=== PATIENT | female | born 1975 | race Caucasian/White ===

== ENCOUNTER → 2018-04-06 | Outpatient (CLI) | payer BC | LOC: CARD 14:17 | PROVIDERS: ATTEND Internal Medicine Interventional Cardiology | DX: R00.2 Palpitations (principal); R55 Syncope and collapse | CPT/HCPCS: 93225; 93226 ==

== ENCOUNTER → 2018-04-22 | Outpatient (CLI) | payer BC ==
[~2018-04-22] VITALS: Ht 172.7 cm; Wt 131.5 kg
[~2018-04-22] MED LIST: CATHETER FLUSH 10 ML SYR IV PRN; REGADENOSON 0.4 MG/5 ML SYR (LEXISCAN) IV ONE
[2018-04-22 10:03] VITALS: BP 119/71
[2018-04-22 10:06] VITALS: BP 157/86
[2018-04-22 18:20] VITALS: BP 119/71
--- NOTE | 2018-04-22 18:20 | Cardiology Stress Test Report ---
Stress Test Report Type of NM Stress Test: Test Type: LEXISCAN 0.4MG/5ML Date of Procedure/Referring: Date of Procedure: Apr 22, 2018 PCP Juan Manuel Xiong MD Admitting Physician No,Local Physician Indications: near syncope Baseline Heart Rate: 55 Baseline Blood Pressure: Blood Pressure Systolic: 119 Blood Pressure Diastolic: 71 Baseline EKG: Baseline EKG: sinus rhythm Summary & Conclusion: Summary: The patient was brought to the stress lab after informed consent was taken. Stress test was performed according to the Lexiscan protocol. 0.4 mg of IV Lexiscan was given. Low-grade exercise was performed. Baseline EKG showed sinus rhythm at 55 BPM. Initial blood pressure was 119/71 mmHg. Maximum heart rate was 126 bpm and blood pressure 157/86 mmHg. Patient did not have any chest pain, arrhythmias or ST segment changes during the stress test. 10.91 mCi of Myoview were given for rest imaging and 29.5 mCi of Myoview given for stress imaging. Transient ischemic dilatation score 1.05, EF normal. Normal wall motion. Normal myocardial perfusion imaging during rest and stress. Conclusion: Pharmacological stress test was negative for ischemia. Normal LV function with no wall motion abnormalities. Normal myocardial perfusion imaging during rest and stress. Juan Manuel XIONG MD Apr 22, 2018 6:20 pm
== END ==
LOC: CARD 08:12 → EDUNIT# 08:30
PROVIDERS: ATTEND Internal Medicine Interventional Cardiology
DX: Z01.810 Encounter for preprocedural cardiovascular examination (principal); E66.01 Morbid (severe) obesity due to excess calories; R55 Syncope and collapse; R00.2 Palpitations; I45.10 Unspecified right bundle-branch block; G47.30 Sleep apnea, unspecified; Q21.1 Atrial septal defect
CPT/HCPCS: 78452; 93017

== ENCOUNTER 2018-05-20 11:56 | Day surgery (SDC) | payer BC ==
[~2018-05-20] VITALS: Ht 172.7 cm; Wt 118.8 kg
[2018-05-20] MEDS ORDERED: LIDOCAINE 1% INJ 20 ML 20 ML VIAL ONE ×2 (12:25→13:16)
[2018-05-20 12:37] VITALS: BP 124/61
--- OUTSIDE RECORDS SUMMARY | 2018-05-20 13:02 | XMS REPORT ---
Author Author Yazmin Wallis [facility] Address [address] [place], [place] [id number] Care Team Providers Care Contour Sander Name Role Phone Yazmin Wallis PCP Yazmin Wallis PreferredProvider Allergies and Adverse Reactions Name Reaction Notes Augmentin diarrhea, stomach cramping Levaquin woke up and could not use hands Plan of Treatment Planned Activity Comments Planned Date Planned Time Plan/Goal Breathing Treatment 06/23/2015 12:00 AM Diagnostic Mammogram 01/04/2013 12:00 AM Breast Ultrasound 01/04/2013 12:00 AM Mammogram, screening, bilateral 05/07/2018 12:00 AM Medications Active Name Start Date Estimated Completion Date SIG Comments Adult Probiotic 3 billion cell oral capsule take 1 capsule by oral route daily Calcium 600 600 mg calcium (1,500 mg) oral tablet take 1 tablet by oral route 2 times a day cyanocobalamin (vitamin B-12) 1,000 mcg oral capsule take 1 capsule by oral route weekly metoprolol tartrate 25 mg oral tablet take 1 tablet (25 mg) by oral route once daily extended release multivitamin oral capsule take 2 capsules by oral route daily Name Start Date Expiration Date SIG Comments ondansetron 8 mg oral tablet,disintegrating 02/11/2011 02/18/2011 take 1 tablet (8 mg) and place on top of the tongue where it will dissolve, then swallow by oral route every 8 hours for 7 days Levaquin 750 mg oral tablet 03/03/2011 03/17/2011 take 1 tablet (750 mg) by oral route once daily for 14 days Bactrim DS 800-160 mg oral tablet 03/21/2011 03/28/2011 take 1 tablet by oral route every 12 hours for 7 days Zithromax Z-Adan 250 mg oral tablet 05/07/2012 05/12/2012 take 2 tablets (500 mg) by oral route once daily for 1 day then 1 tablet (250 mg) by oral route once daily for 4 days Vibramycin 100 mg oral capsule 06/11/2012 06/21/2012 take 1 capsule (100 mg) by oral route every 12 hours for 10 days amoxicillin 500 mg oral capsule 03/21/2013 03/28/2013 take 1 capsule (500 mg ) by oral route every 8 hours for 7 days omeprazole 20 mg oral capsule,delayed release(DR/EC) 06/03/2013 07/03/2013 take 1 capsule (20 mg) by oral route once daily before a meal for 30 days Zyrtec 10 mg oral tablet 06/03/2013 10/01/2013 take 1 tablet by oral route daily for 30 days Tamiflu 75 mg oral capsule 05/30/2014 06/04/2014 take 1 capsule (75 mg) by oral route 2 times per day for 5 days azithromycin 500 mg oral tablet 05/10/2015 05/15/2015 take 1 tablet (500 mg) by oral route once daily x 5 days promethazine-codeine 6.25-10 mg/5 mL oral syrup 05/10/2015 05/17/2015 take 5 milliliters by oral route every 4 hours as needed, not to exceed 30 mL in 24 hours for 7 days valacyclovir 1 gram oral tablet 07/06/2015 07/09/2015 take 2 tablets by oral route 2 times a day for 1 day nystatin 100,000 unit/gram topical powder 10/14/2016 11/13/2016 apply to the affected area(s) by topical route 2 times per day for 30 days doxycycline hyclate 100 mg oral capsule 10/16/2016 10/23/2016 take 1 capsule ( 100 mg) by oral route every 12 hours for 7 days Discontinued Name Start Date Discontinued Date SIG Comments Lasix 40 mg oral tablet 09/23/2011 take 1 tablet (40 mg) by oral route once daily Motrin 800 mg oral tablet 02/11/2011 03/21/2011 take 1 tablet by oral route every 8 hours as needed Percocet 5-325 mg oral tablet 02/11/2011 03/07/2011 take 1 tablet by oral route every 4-6 hours as needed Klor-Con M20 20 mEq oral tablet,ER particles/crystals 10/23/2011 08/10/2014 take 1 tablet (20 meq) by oral route once daily with food phentermine 37.5 mg oral capsule 10/23/2011 11/24/2012 take 1 capsule (37.5 mg ) by oral route once daily before breakfast for 30 days furosemide 20 mg oral tablet 12/09/2011 08/10/2014 take 1 tablet by oral route 2 times a day albuterol sulfate 90 mcg/actuation inhalation HFA aerosol inhaler 06/11/2012 inhale 1 - 2 puffs by inhalation route every 6 hours as needed Tessalon Perles 100 mg oral capsule 06/11/2012 08/10/2014 take 1 capsule by oral route 3 times a day as needed levothyroxine 50 mcg oral tablet 11/29/2012 05/02/2013 take 1 tablet (50 mcg ) by oral route once daily promethazine-codeine 6.25-10 mg/5 mL oral syrup 03/21/2013 08/10/2014 take 5 milliliters by oral route every 4-6 hours as needed, not to exceed 30 mL in 24 hours phentermine 37.5 mg oral tablet 05/02/2013 08/10/2014 take 1 tablet (37.5 mg) by oral route once daily before breakfast Zithromax Z-Adan 250 mg oral tablet 08/10/2014 take 2 tablets (500 mg) by oral route once daily for 1 day then 1 tablet (250 mg) by oral route once daily for 4 days Famvir 500 mg oral tablet 08/10/2014 05/10/2015 take 3 tablets (1500 mg) by oral route once within first hour of symptoms phentermine 37.5 mg oral tablet 11/06/2014 05/10/2015 take 1 tablet (37.5 mg) by oral route once daily before breakfast furosemide 20 mg oral tablet 02/16/2015 05/10/2015 take 1 tablet (20 mg) by oral route once daily for 90 days Symbicort 160-4.5 mcg/actuation inhalation HFA aerosol inhaler 06/23/2015 inhale 2 puffs by inhalation route 2 times per day in the morning and evening Medrol (Adan) 4 mg oral tablets,dose pack 06/25/2015 05/06/2016 take as directed promethazine-codeine 6.25-10 mg/5 mL oral syrup 06/25/2015 05/06/2016 take 5 milliliters by oral route every 4-6 hours as needed, not to exceed 30 mL in 24 hours Augmentin 875-125 mg oral tablet 04/07/2017 05/07/2018 take 1 tablet by oral route every 12 hours for 7 days promethazine-codeine 6.25-10 mg/5 mL oral syrup 04/07/2017 05/07/2018 take 5 milliliters by oral route every 6 hours as needed, not to exceed 30 mL in 24 hours Problem List Description Status Onset Edema Active 10/23/2011 Hypothyroidism Active 03/21/2013 GE (obstructive sleep apnea) Active 05/07/2018 ASD (atrial septal defect) Active 05/07/2018 Tachycardia Active 05/07/2018 Constipation Active 05/07/2018 Vital Signs Date Time BP-Sys(mm[Hg] BP-Jessi(mm[Hg]) HR(bpm) RR(rpm) Temp WT HT HC BMI BSA BMI Percentile O2 Sat(%) 05/07/2018 3:35:00 PM 108 mmHg 80 mmHg 74 bpm 16 rpm 98.1 F 273.25 lbs 66 in 44.1033 kg/m 2.4024 m 97 % 04/07/2017 3:47:00 PM 130 mmHg 80 mmHg 67 bpm 18 rpm 96.9 F 298 lbs 99 % 10/16/2016 4:22:00 PM 122 mmHg 80 mmHg 78 bpm 16 rpm 97.9 F 296 lbs 97 % 05/06/2016 4:20:00 PM 140 mmHg 94 mmHg 62 bpm 16 rpm 98 F 289 lbs 67 in 45.2633 kg/m 2.4893 m 97 % 06/25/2015 3:38:00 PM 89 bpm 20 rpm 99.5 F 262 lbs 98 % 06/23/2015 9:11:00 AM 126 mmHg 74 mmHg 97 bpm 18 rpm 98.3 F 262.187 lbs 67 in 41.0639 kg/m 2.3711 m 95 % 05/10/2015 5:07:00 PM 124 mmHg 66 mmHg 82 bpm 18 rpm 96.6 F 265.125 lbs 67 in 41.52 kg/m2 2.38 m2 98 % 11/06/2014 4:14:00 PM 114 mmHg 78 mmHg 88 bpm 20 rpm 97.7 F 269.6 lbs 67 in 42.2249 kg/m 2.4043 m 97 % 09/21/2014 3:20:00 PM 118 mmHg 80 mmHg 62 bpm 18 rpm 97.2 F 277.25 lbs 67 in 43.42 kg/m2 2.44 m2 97 % 08/10/2014 4:06:00 PM 122 mmHg 80 mmHg 76 bpm 20 rpm 97.3 F 292.6 lbs 67 in 45.8272 kg/m 2.5048 m 95 % 05/02/2013 3:20:00 PM 122 mmHg 84 mmHg 77 bpm 18 rpm 97.9 F 286.125 lbs 98 % 03/21/2013 3:25:00 PM 118 mmHg 72 mmHg 71 bpm 20 rpm 97.9 F 282 lbs 66 in 45.52 kg/m2 2.44 m2 96 % 11/24/2012 3:31:00 PM 128 mmHg 84 mmHg 80 bpm 18 rpm 97.9 F 278 lbs 67 in 43.5405 kg/m 2.4415 m 95 % 07/06/2012 3:39:00 PM 135 mmHg 82 mmHg 92 bpm 20 rpm 98.7 F 289.4 lbs 67 in 45.33 kg/m2 2.49 m2 96 % 06/11/2012 3:28:00 PM 134 mmHg 92 mmHg 65 bpm 20 rpm 97 F 292 lbs 67 in 45.7332 kg/m 2.5022 m 96 % 05/07/2012 3:18:00 PM 112 mmHg 82 mmHg 72 bpm 18 rpm 97.4 F 284 lbs 67 in 44.48 kg/m2 2.47 m2 10/23/2011 4:27:00 PM 110 mmHg 70 mmHg 61 bpm 16 rpm 98.1 F 276 lbs 97 % 09/23/2011 3:39:00 PM 130 mmHg 80 mmHg 82 bpm 16 rpm 97.6 F 285.125 lbs 67 in 44.6564 kg/m 2.4726 m 94 % 03/27/2011 10:38:00 AM 107 mmHg 72 mmHg 65 bpm 97.2 F 03/21/2011 1:34:00 PM 126 mmHg 62 mmHg 78 bpm 98 F 279 lbs 67 in 43.6971 kg/m 2.4459 m 03/17/2011 10:11:00 AM 126 mmHg 74 mmHg 62 bpm 97.4 F 280 lbs 03/07/2011 3:53:00 PM 124 mmHg 82 mmHg 86 bpm 96.4 F 03/05/2011 9:23:00 AM 138 mmHg 82 mmHg 98 F 278 lbs 03/03/2011 10:54:00 AM 131 mmHg 85 mmHg 75 bpm 97.1 F 02/11/2011 4:37:00 PM 126 mmHg 74 mmHg 69 bpm 98.8 F 288 lbs 66 in 46.4839 kg/m 2.4664 m 12/24/2010 3:31:00 PM 112 mmHg 71 mmHg 76 bpm 97.6 F 286 lbs 66 in 46.16 kg/m2 2.46 m2 Social History Name Description Comments Tobacco Never smoker Alcohol Never History of Procedures Date Ordered Description Order Status 02/11/2011 12:00 AM COMPLETE CBC W/AUTO DIFF WBC Reviewed 02/11/2011 12:00 AM COMPREHEN METABOLIC PANEL Reviewed 02/11/2011 12:00 AM Type and screen Reviewed 05/10/2015 12:00 AM THER/PROPH/DIAG INJ SC/IM Reviewed 05/10/2015 12:00 AM Decadron, Per 1 Mg [facility]# [address]-28 Reviewed 05/10/2015 12:00 AM Rocephin 1 gram [facility]#0755-1120-59 Reviewed 05/10/2015 12:00 AM Depo-Medrol 40mg Reviewed 06/25/2015 12:00 AM THER/PROPH/DIAG INJ SC/IM Reviewed 06/25/2015 12:00 AM Decadron, Per 1 Mg [facility]# [address]-71 Reviewed 09/23/2011 12:00 AM COMPREHEN METABOLIC PANEL Reviewed 09/23/2011 12:00 AM LIPID PANEL Reviewed 09/23/2011 12:00 AM GLYCOSYLATED HEMOGLOBIN TEST Reviewed 09/23/2011 12:00 AM ASSAY THYROID STIM HORMONE Reviewed 09/23/2011 12:00 AM COMPLETE CBC W/AUTO DIFF WBC Reviewed 09/23/2011 12:00 AM VITAMIN B-12 Reviewed 09/23/2011 12:00 AM ASSAY OF FREE TESTOSTERONE Reviewed 05/13/2016 12:00 AM METABOLIC PANEL TOTAL CA Returned 05/13/2016 12:00 AM COMPLETE CBC W/AUTO DIFF WBC Returned 05/13/2016 12:00 AM ASSAY THYROID STIM HORMONE Returned 05/06/2016 12:00 AM SPECIMEN HANDLING OFFICE-LAB Reviewed 05/13/2016 12:00 AM LIPID PANEL Returned 10/16/2016 12:00 AM Decadron 4mg Injection Reviewed 10/16/2016 12:00 AM Depo-Medrol 40mg Injection Reviewed 04/07/2017 12:00 AM Depo-Medrol 40mg Injection Reviewed 04/07/2017 12:00 AM Decadron 4mg Injection Reviewed 04/07/2017 12:00 AM THER/PROPH/DIAG INJ SC/IM Reviewed 06/11/2012 12:00 AM THER/PROPH/DIAG INJ SC/IM Reviewed 06/11/2012 12:00 AM Decadron, Per 1 Mg [facility]# [address]-96 Reviewed 06/11/2012 12:00 AM Depo-Medrol, Per 80 Mg [facility]#5824-6496-26 Reviewed 07/06/2012 12:00 AM CHEST X-RAY 2VW FRONTAL&LATL Reviewed 07/06/2012 12:00 AM COMPLETE CBC W/AUTO DIFF WBC Reviewed 07/06/2012 12:00 AM COMPREHEN METABOLIC PANEL Reviewed 07/06/2012 12:00 AM MYCOPLASMA ANTIBODY Reviewed 11/24/2012 12:00 AM COMPREHEN METABOLIC PANEL Reviewed 11/24/2012 12:00 AM LIPID PANEL Reviewed 11/24/2012 12:00 AM COMPLETE CBC W/AUTO DIFF WBC Reviewed 11/24/2012 12:00 AM ASSAY THYROID STIM HORMONE Reviewed 11/24/2012 12:00 AM MAMMOGRAM SCREENING Reviewed 11/24/2012 12:00 AM POLYSOM 6/> YRS 4/> LATRELL Reviewed 12/08/2012 12:00 AM COMPUTER DX MAMMOGRAM ADD-ON Reviewed 03/21/2013 12:00 AM FREE ASSAY (FT-3) Reviewed 03/21/2013 12:00 AM ASSAY THYROID STIM HORMONE Reviewed 05/02/2013 12:00 AM CHEST X-RAY 2VW FRONTAL&LATL Reviewed 05/02/2013 12:00 AM X-RAY EXAM OF TOE(S) Reviewed 05/02/2013 12:00 AM THER/PROPH/DIAG INJ SC/IM Reviewed 05/02/2013 12:00 AM Depo-Medrol, Per 120 Mg [facility]#9580-3086-67 Reviewed 05/02/2013 12:00 AM Decadron, Per 1 Mg [facility]# [address]-49 Reviewed 09/21/2014 12:00 AM COMPLETE CBC W/AUTO DIFF WBC Reviewed 09/21/2014 12:00 AM COMPREHEN METABOLIC PANEL Reviewed 09/21/2014 12:00 AM LIPID PANEL Reviewed 10/09/2014 12:00 AM COMPREHEN METABOLIC PANEL Reviewed 02/13/2015 12:00 AM METABOLIC PANEL TOTAL CA Reviewed Results Summary Date and Description Results 02/11/2011 5:45 PM GLUCOSE 89.0 mg/dLSODIUM 141.0 mmol/LPOTASSIUM 4.30 mmol/ LCHLORIDE 108.0 mmol/LCO2 24.0 mmol/LBUN 11.0 mg/dLCREATININE 0.90 mg/dLSGOT/ AST 15.0 IU/LSGPT/ALT 19.0 IU/LALK PHOS 99.0 IU/LTOTAL PROTEIN 6.90 g/dLALBUMIN 3.90 g/dLTOTAL BILI 0.20 mg/dLCALCIUM 9.30 mg/dLAGE 35 GFR NonAA 70 GFR AA 85 eGFR >60 mL/min/1.73 m2eGFR AA* >60 WBC 8.1 RBC 5.05 HGB 14.50 g/dLHCT 43.40 % MCV 86.0 fLMCH 28.70 pgMCHC 33.40 g/dLRDW SD 42 RDW CV 13.40 %MPV 11.90 fLPLT 201 NRBC# 0.00 NRBC% 0.0 %NEUT 58.70 %%LYMP 33.40 %%MONO 6.80 %%EOS 0.70 %%BASO 0.40 %#NEUT 4.73 #LYMP 2.69 #MONO 0.55 #EOS 0.06 #BASO 0.03 MANUAL DIFF NOT IND 09/27/2011 9:55 AM WBC 6.4 RBC 5.23 HGB 14.90 g/dLHCT 44.80 %MCV 86.0 fLMCH 28.50 pgMCHC 33.30 g/dLRDW SD 42 RDW CV 13.40 %MPV 11.80 fLPLT 193 NRBC# 0.00 NRBC% 0.0 %NEUT 61.0 %%LYMP 28.80 %%MONO 8.30 %%EOS 1.40 %%BASO 0.50 %#NEUT 3.89 #LYMP 1.84 #MONO 0.53 #EOS 0.09 #BASO 0.03 MANUAL DIFF NOT IND GLUCOSE 92.0 mg/dLSODIUM 143.0 mmol/LPOTASSIUM 4.30 mmol/LCHLORIDE 111.0 mmol/LCO2 24.0 mmol/LBUN 14.0 mg/dLCREATININE 0.80 mg/dLSGOT/AST 13.0 IU/LSGPT/ALT 14.0 IU/ LALK PHOS 86.0 IU/LTOTAL PROTEIN 6.20 g/dLALBUMIN 4.10 g/dLTOTAL BILI 0.40 mg/ dLCALCIUM 9.30 mg/dLAGE 36 GFR NonAA 80 GFR AA 97 eGFR 60 eGFR AA* 60 TSH 1.590 uIU/mLVITAMIN B12 229.0 pg/mLTRIGLYCERIDES 100.0 mg/dLCHOLESTEROL 161.0 mg/ dLHDL 43.0 mg/dLTOT CHOL/HDL 3.7 LDL (CALC) 98.0 mg/dLGLYCOHEMOGLOBIN A1C 5.30 % 07/06/2012 4:20 PM WBC 7.4 RBC 5.10 HGB 14.30 g/dLHCT 43.30 %MCV 85.0 fLMCH 28.0 pgMCHC 33.0 g/dLRDW SD 41 RDW CV 13.30 %MPV 11.50 fLPLT 212 NRBC# 0.00 NRBC % 0.0 %NEUT 59.10 %%LYMP 30.90 %%MONO 8.0 %%EOS 1.60 %%BASO 0.40 %#NEUT 4.36 # LYMP 2.28 #MONO 0.59 #EOS 0.12 #BASO 0.03 MANUAL DIFF NOT IND GLUCOSE 86.0 mg/ dLSODIUM 140.0 mmol/LPOTASSIUM 4.40 mmol/LCHLORIDE 109.0 mmol/LCO2 24.0 mmol/ LBUN 15.0 mg/dLCREATININE 0.90 mg/dLSGOT/AST 13.0 IU/LSGPT/ALT 15.0 IU/LALK PHOS 85.0 IU/LTOTAL PROTEIN 6.90 g/dLALBUMIN 3.90 g/dLTOTAL BILI 0.20 mg/ dLCALCIUM 9.10 mg/dLAGE 37 GFR NonAA 70 GFR AA 85 eGFR 60 eGFR AA* 60 11/27/2012 4:47 AM GLUCOSE 100.0 mg/dLSODIUM 142.0 mmol/LPOTASSIUM 4.10 mmol/ LCHLORIDE 109.0 mmol/LCO2 22.0 mmol/LBUN 18.0 mg/dLCREATININE 0.80 mg/dLSGOT/ AST 13.0 IU/LSGPT/ALT 16.0 IU/LALK PHOS 87.0 IU/LTOTAL PROTEIN 6.50 g/dLALBUMIN 3.70 g/dLTOTAL BILI 0.30 mg/dLCALCIUM 9.50 mg/dLAGE 37 GFR NonAA 80 GFR AA 97 eGFR 60 eGFR AA* 60 TSH 3.850 uIU/mLWBC 7.9 RBC 5.11 HGB 14.60 g/dLHCT 43.90 % MCV 86.0 fLMCH 28.60 pgMCHC 33.30 g/dLRDW SD 41 RDW CV 13.0 %MPV 11.80 fLPLT 203 NRBC# 0.00 NRBC% 0.0 %NEUT 57.0 %%LYMP 34.80 %%MONO 7.0 %%EOS 0.90 %%BASO 0.30 %#NEUT 4.49 #LYMP 2.74 #MONO 0.55 #EOS 0.07 #BASO 0.02 MANUAL DIFF NOT IND TRIGLYCERIDES 117.0 mg/dLCHOLESTEROL 182.0 mg/dLHDL 44.0 mg/dLTOT CHOL/HDL 4.1 LDL (CALC) 115.0 mg/dL 03/29/2013 3:42 PM TSH 1.950 uIU/mL 09/23/2014 10:35 AM TRIGLYCERIDES 61.0 mg/dLCHOLESTEROL 157.0 mg/dLHDL 47.0 mg/ dLTOT CHOL/HDL 3.3 LDL (CALC) 98.0 mg/dLGLUCOSE 105.0 mg/dLSODIUM 144.0 mmol/ LPOTASSIUM 4.50 mmol/LCHLORIDE 111.0 mmol/LCO2 24.0 mmol/LBUN 11.0 mg/ dLCREATININE 1.0 mg/dLSGOT/AST 13.0 IU/LSGPT/ALT 16.0 IU/LALK PHOS 78.0 IU/ LTOTAL PROTEIN 6.90 g/dLALBUMIN 4.30 g/dLTOTAL BILI 0.60 mg/dLCALCIUM 9.70 mg/ dLAGE 39 GFR NonAA 61 GFR AA 74 eGFR >60 mL/min/1.73 m2eGFR AA* >60 WBC 7.2 RBC 5.28 HGB 15.30 g/dLHCT 46.0 %MCV 87.0 fLMCH 29.0 pgMCHC 33.30 g/dLRDW SD 42 RDW CV 13.20 %MPV 12.30 fLPLT 190 NRBC# 0.00 NRBC% 0.0 %NEUT 62.10 %%LYMP 29.50 %% MONO 7.40 %%EOS 0.70 %%BASO 0.30 %#NEUT 4.47 #LYMP 2.12 #MONO 0.53 #EOS 0.05 # BASO 0.02 MANUAL DIFF NOT IND 11/06/2014 5:10 PM GLUCOSE 79.0 mg/dLSODIUM 144.0 mmol/LPOTASSIUM 3.90 mmol/ LCHLORIDE 106.0 mmol/LCO2 26.0 mmol/LBUN 12.0 mg/dLCREATININE 1.0 mg/dLSGOT/AST 15.0 IU/LSGPT/ALT 16.0 IU/LALK PHOS 85.0 IU/LTOTAL PROTEIN 6.50 g/dLALBUMIN 4.20 g/dLTOTAL BILI 0.40 mg/dLCALCIUM 9.0 mg/dLAGE 39 GFR NonAA 61 GFR AA 74 eGFR >60 mL/min/1.73 m2eGFR AA* >60 02/14/2015 5:01 PM GLUCOSE 85.0 mg/dLSODIUM 143.0 mmol/LPOTASSIUM 4.20 mmol/ LCHLORIDE 109.0 mmol/LCO2 27.0 mmol/LBUN 13.0 mg/dLCREATININE 0.90 mg/dLCALCIUM 9.20 mg/dLAGE 39 GFR NonAA 69 GFR AA 84 eGFR >60 mL/min/1.73meGFR AA* >60 History Of Immunizations Name Date Admin Mfg Name Mfg Code Trade Name Lot# Route Inj Vis Given Vis Pub CVX Influenza 02/28/2017 sanofi pasteur PMC Fluzone Quadrivalent Not Entered Not Entered 02/28/2017 06/08/2017 150 History of Past Illness Name Date of Onset Comments Edema 10/23/2011 Hypothyroidism 03/21/2013 Dysmenorrhea Dec 24 2010 3:30PM Pelvic Pain Feb 11 2011 4:36PM Dysmenorrhea Feb 11 2011 4:36PM Postoperative Examination Following Surgery Mar 03 2011 10:52AM Cellulitis/Abscess Mar 03 2011 10:52AM Postoperative Examination Following Surgery Mar 05 2011 9:23AM Cellulitis/Abscess Mar 05 2011 9:23AM Postoperative Examination Following Surgery Mar 07 2011 4:14PM Postoperative Examination Following Surgery Mar 17 2011 10:10AM Postoperative Examination Following Surgery Mar 21 2011 1:32PM Postoperative Examination Following Surgery Mar 27 2011 10:33AM GE (obstructive sleep apnea) 05/07/2018 ASD (atrial septal defect) 05/07/2018 Tachycardia 05/07/2018 Constipation 05/07/2018 Fatigue Sep 23 2011 3:44PM Glucose Intolerance Sep 23 2011 3:44PM Screening for Ischemic Heart Disease Sep 23 2011 3:44PM Restless Legs Sep 23 2011 3:44PM Restless Legs Oct 23 2011 4:29PM Edema Oct 23 2011 4:29PM Dietary Counseling Oct 23 2011 4:29PM Vitamin B12 deficiency Oct 23 2011 4:29PM Frontal Sinusitis, Acute May 07 2012 3:21PM Cough May 07 2012 3:21PM Weight Loss May 07 2012 3:21PM Obesity May 07 2012 3:21PM Cough Jun 11 2012 3:32PM Wheezing Jun 11 2012 3:32PM Bronchitis Jun 11 2012 3:32PM Cough Jul 06 2012 3:42PM Dyspnea Jul 06 2012 3:42PM Routine gynecological examination Nov 24 2012 3:39PM Screening Examination for Breast Cancer Nov 24 2012 3:39PM Vaginal Dryness Nov 24 2012 3:39PM Apnea Nov 24 2012 3:39PM Fatigue Nov 24 2012 3:39PM Screening for Ischemic Heart Disease Nov 24 2012 3:39PM Breast Mass, right Dec 08 2012 8:22AM Breast Mass, right Jan 04 2013 1:06PM Hypothyroidism Mar 21 2013 3:29PM Cough May 02 2013 3:23PM Edema May 02 2013 3:23PM Restless Legs May 02 2013 3:23PM Dietary Counseling May 02 2013 3:23PM Vitamin B12 deficiency May 02 2013 3:23PM Pain in foot, left 2nd toe May 02 2013 3:23PM Rhinitis, Allergic May 02 2013 3:23PM Dietary Counseling Aug 10 2014 4:07PM Exercise Counseling Aug 10 2014 4:07PM Body Mass Index 45.0-49.9, adult Aug 10 2014 4:07PM Dietary Counseling Sep 21 2014 3:22PM Exercise Counseling Sep 21 2014 3:22PM Body Mass Index 40.0-44.9, adult Sep 21 2014 3:22PM Pedal edema Sep 21 2014 3:22PM Ischemic heart disease screen Sep 21 2014 3:22PM 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 Hypokalemia Sep 25 2014 4:04PM Dietary Counseling Nov 06 2014 4:17PM Exercise Counseling Nov 06 2014 4:17PM Body Mass Index 40.0-44.9, adult Nov 06 2014 4:17PM Hypokalemia Feb 13 2015 3:22PM Bronchitis, Acute May 10 2015 5:09PM Cough May 10 2015 5:09PM Sinusitis, Acute May 10 2015 5:09PM Wheezing May 10 2015 5:09PM Cough Jun 23 2015 9:13AM Wheezing symptom Jun 23 2015 9:13AM Upper respiratory infection Jun 23 2015 9:13AM Upper respiratory tract infection, unspecified upper respiratory infection Jun 25 2015 3:39PM Hypothyroidism, Acquired May 06 2016 4:19PM Blood pressure check May 06 2016 4:19PM Screening for diabetes mellitus May 06 2016 4:19PM Well adult exam May 06 2016 4:19PM Acute bronchitis, unspecified organism Oct 16 2016 4:24PM Acute non-recurrent frontal sinusitis Apr 07 2017 3:48PM Eustachian tube dysfunction, bilateral Apr 07 2017 3:48PM Cough Apr 07 2017 3:48PM Breast cancer screening May 07 2018 3:41PM Tachycardia May 07 2018 3:41PM ASD (atrial septal defect) May 07 2018 3:41PM Constipation May 07 2018 3:41PM GE (obstructive sleep apnea) May 07 2018 3:41PM Payers Insurance Name Company Name Plan Name Plan Number Policy Number Policy Group Number Start Date [employer]BS [facility] [id number] N/A [facility] [id number] Friday, 2011 [facility] [id number] Wednesday, 2011 [facility] [id number] N/A Condition One Financial Assistance Condition One Financial Kemi 73 PERCENT Friday, April 21, 2017 History of Encounters Visit Date Visit Type Provider 05/07/[address] Yazmin Wallis DO 04/07/2017 Office visit Hussain Ledesma DEVELOPMENT CHEMIST 10/16/2016 Office visit Hussain Ledesma APRN 05/06/2016 Office visit Stephany Ng MD 06/25/2015 Office visit Mita Rios APRN 06/23/2015 Office visit Adolfo Paez PA-C 05/10/2015 Office visit Alia Sarabia DEVELOPMENT CHEMIST 11/06/2014 Office visit Mita Rios DEVELOPMENT CHEMIST 09/21/2014 Office visit Mita Rios DEVELOPMENT CHEMIST 08/10/2014 Office visit Mita Rios DEVELOPMENT CHEMIST 05/02/2013 Office visit Maureen Jerez MD 03/21/2013 Office visit Hussain Ledesma DEVELOPMENT CHEMIST 11/24/2012 Office visit Mita Rios DEVELOPMENT CHEMIST 07/06/2012 Office visit Mita Rios DEVELOPMENT CHEMIST 06/11/2012 Office visit Mita Rios DEVELOPMENT CHEMIST 05/07/2012 Office visit Mita Rios DEVELOPMENT CHEMIST 10/23/2011 Office visit Maureen Jerez MD 09/23/2011 Office visit Maureen Jerez MD 03/27/2011 Surgery Homero Catherine MD 03/21/2011 Surgery Homero Catherine MD 03/17/2011 Surgery Arden Magaña MD 03/07/2011 Surgery Homero Catherine MD 03/05/2011 Surgery Arden Magaña MD 03/03/2011 Surgery Arden Magaña MD 02/22/2011 Voided Homero Catherine MD 02/20/2011 [facility] OSMAN Neville MD 02/20/2011 Voided Homero Catherine MD 02/18/2011 [facility] Homero Catherine MD 02/11/2011 Surgery Homero Catherine MD 12/24/2010 Office visit Homero Catherine MD
--- OUTSIDE RECORDS SUMMARY | 2018-05-20 13:03 | XMS REPORT ---
Author Author Yazmin Wallis [facility] Address [address] [place], [place] [id number] Care Team Providers Care Hop Separator Name Role Phone Yazmin Wallis PCP Yazmin [...] 05/10/2015 12:00 AM Decadron, Per [address] [facility]# [id number] Reviewed 05/10/2015 12:00 AM Rocephin [address] [facility]#[id number] Reviewed 05/10/2015 12:00 AM Depo-Medrol 40mg Reviewed 06/25/2015 12:00 AM THER/PROPH/DIAG INJ SC/IM Reviewed 06/25/2015 12:00 AM Decadron, Per [address] [facility]# [id number] Reviewed 09/23/2011 12:00 AM COMPREHEN METABOLIC PANEL [...] 06/11/2012 12:00 AM Decadron, Per [address] [facility]# [id number] Reviewed 06/11/2012 12:00 AM Depo-Medrol, Per [address] [facility]#[id number] Reviewed 07/06/2012 12:00 AM CHEST X-RAY 2VW [...] 05/02/2013 12:00 AM Depo-Medrol, Per [address] [facility]#[id number] Reviewed 05/02/2013 12:00 AM Decadron, Per [address] [facility]# [id number] Reviewed 09/21/2014 12:00 AM COMPLETE CBC W/AUTO [...] Policy Group Number Start Date BCBS Bcbs [facility] [id number] N/A [facility] [id number] Friday, 2011 [facility] [id number] Wednesday, 2011 [facility] [id number] N/A [employer] Financial [employer] Kemi 75 PERCENT Friday, April 21, 2017 History of Encounters Visit Date Visit Type Provider 05/07/[address] Yazmin Wallis DO 04/07/2017 Office visit Hussain Ledesma SENIOR SOFTWARE ENGINEERING MANAGER 10/16/2016 Office visit Hussain Ledesma APRN 05/06/2016 Office visit Stephany Ng MD 06/25/2015 Office visit Mita Rios APRN 06/23/2015 Office visit Adolfo Paez PA-C 05/10/2015 Office visit Alia Sarabia SENIOR SOFTWARE ENGINEERING MANAGER 11/06/2014 Office visit Mita Rios SENIOR SOFTWARE ENGINEERING MANAGER 09/21/2014 Office visit Mita Rios SENIOR SOFTWARE ENGINEERING MANAGER 08/10/2014 Office visit Mita Rios SENIOR SOFTWARE ENGINEERING MANAGER 05/02/2013 Office visit Maureen Jerez MD 03/21/2013 Office visit Hussain Ledesma SENIOR SOFTWARE ENGINEERING MANAGER 11/24/2012 Office visit Mita Rios SENIOR SOFTWARE ENGINEERING MANAGER 07/06/2012 Office visit Mita Rios SENIOR SOFTWARE ENGINEERING MANAGER 06/11/2012 Office visit Mita Rios SENIOR SOFTWARE ENGINEERING MANAGER 05/07/2012 Office visit Mita Rios SENIOR SOFTWARE ENGINEERING MANAGER 10/23/2011 Office visit Maureen Jerez MD 09/23/2011 Office visit Maureen Jerez MD 03/27/2011 Surgery Homero Catherine MD 03/21/2011 Surgery Homero Catherine MD 03/17/2011 Surgery Arden Magaña MD 03/07/2011 Surgery Homero Catherine MD 03/05/2011 Surgery Arden Magaña MD 03/03/2011 Surgery Arden Magaña MD 02/22/2011 Voided Homero Catherine MD 02/20/2011 [facility] OSMAN Neville MD 02/20/2011 Voided Homero Catherine MD 02/18/2011 [facility] Homero Catherine MD 02/11/2011 Surgery Homero Catherine MD 12/24/2010 Office visit Homero Catherine MD
--- OUTSIDE RECORDS SUMMARY | 2018-05-20 13:05 | XMS REPORT ---
Author Author Yazmin Wallis [facility] Address [address] [place] [id number] Care Team Providers Care Treating And Pumping Supervisor Name Role Phone Yazmin Wallis PCP Yazmin [...] 05/10/2015 12:00 AM Decadron, Per 1 Mg [facility]# [id number] Reviewed 05/10/2015 12:00 AM Rocephin 1 gram [facility]#[id number] Reviewed 05/10/2015 12:00 AM Depo-Medrol 40mg Reviewed 06/25/2015 12:00 AM THER/PROPH/DIAG INJ SC/IM Reviewed 06/25/2015 12:00 AM Decadron, Per 1 Mg [facility]# [id number] Reviewed 09/23/2011 12:00 AM COMPREHEN METABOLIC PANEL [...] 06/11/2012 12:00 AM Decadron, Per 1 Mg [facility]# [id number] Reviewed 06/11/2012 12:00 AM Depo-Medrol, Per 80 Mg [facility]#[id number] Reviewed 07/06/2012 12:00 AM CHEST X-RAY 2VW [...] 05/02/2013 12:00 AM Depo-Medrol, Per 120 Mg [facility]#[id number] Reviewed 05/02/2013 12:00 AM Decadron, Per 1 Mg [facility]# [address]-61 Reviewed 09/21/2014 12:00 AM COMPLETE CBC W/AUTO [...] Policy Group Number Start Date BCBS Bcbs [facility] [id number] N/A [facility] [id number] Friday, 2011 [facility] [id number] Wednesday, 2011 [facility] [id number] N/A [employer] Financial Assistance [employer] Kemi 75 PERCENT Friday, April 21, 2017 History of Encounters Visit Date Visit Type Provider 05/07/[address] Yazmin Wallis DO 04/07/2017 Office visit Hussain Ledesma HUMAN RESOURCES TRAINING MANAGER 10/16/2016 Office visit Hussain Ledesma APRN 05/06/2016 Office visit Stephany Ng MD 06/25/2015 Office visit Mita Rios APRN 06/23/2015 Office visit Adolfo Paez PA-C 05/10/2015 Office visit Alia Sarabia HUMAN RESOURCES TRAINING MANAGER 11/06/2014 Office visit Mita Rios HUMAN RESOURCES TRAINING MANAGER 09/21/2014 Office visit Mita Rios HUMAN RESOURCES TRAINING MANAGER 08/10/2014 Office visit Mita Rios HUMAN RESOURCES TRAINING MANAGER 05/02/2013 Office visit Maureen Jerez MD 03/21/2013 Office visit Hussain Ledesma HUMAN RESOURCES TRAINING MANAGER 11/24/2012 Office visit Mita Rios HUMAN RESOURCES TRAINING MANAGER 07/06/2012 Office visit Mita Rios HUMAN RESOURCES TRAINING MANAGER 06/11/2012 Office visit Mita Rios HUMAN RESOURCES TRAINING MANAGER 05/07/2012 Office visit Mita Rios HUMAN RESOURCES TRAINING MANAGER 10/23/2011 Office visit Maureen Jerez MD 09/23/2011 Office visit Maureen Jerez MD 03/27/2011 Surgery Homero Catherine MD 03/21/2011 Surgery Homero Catherine MD 03/17/2011 Surgery rAden Magaña MD 03/07/2011 Surgery Homero Catherine MD 03/05/2011 Surgery Arden Magaña MD 03/03/2011 Surgery Arden Magaña MD 02/22/2011 Voided Homero Catherine MD 02/20/2011 [facility] OSMAN Neville MD 02/20/2011 Voided Homero Catherine MD 02/18/2011 [facility] Homero Catherine MD 02/11/2011 Surgery Homero Catherine MD 12/24/2010 Office visit Homero Catherine MD
--- OUTSIDE RECORDS SUMMARY | 2018-05-20 13:06 | XMS REPORT ---
Author Author Hussain Ledesma [facility] Address [address] [place], [place] [address] Care Team Providers Care Wool Sampler Name Role Phone Hussain Ledesma PCP Mita Rios PreferredProvider Unavailable Allergies and Adverse Reactions Name Reaction Notes azithromycin cramping Plan of Treatment Planned Activity Comments Planned Date Planned Time Plan/Goal Breathing Treatment 06/23/2015 12:00 AM Diagnostic Mammogram 01/04/2013 12:00 AM Breast Ultrasound 01/04/2013 12:00 AM Medications Active Name Start Date Estimated Completion Date SIG Comments Adult Probiotic 3 billion cell oral capsule take 1 capsule by oral route daily Augmentin 875-125 mg oral tablet 04/07/2017 take 1 tablet by oral route every 12 hours for 7 days promethazine-codeine 6.25-10 mg/5 mL oral syrup 04/07/2017 take 5 milliliters by oral route every 6 hours as needed, not to exceed 30 mL in 24 hours Name Start Date Expiration Date SIG Comments [...] Onset Edema Active 10/23/2011 Hypothyroidism Active 03/21/2013 Vital Signs Date Time BP-Sys(mm[Hg] BP-Jessi(mm[Hg]) HR(bpm) RR(rpm) Temp WT HT HC BMI BSA BMI Percentile O2 Sat(%) 04/07/2017 3:47:00 PM 130 mmHg 80 mmHg 67 bpm 18 rpm 96.9 F 298 lbs 99 % 10/16/2016 4:22:00 PM 122 mmHg 80 mmHg 78 bpm 16 rpm 97.9 F 296 lbs 97 % 05/06/2016 4:20:00 PM 140 mmHg 94 mmHg 62 bpm 16 rpm 98 F 289 lbs 67 in 45.26 kg/m2 2.49 m2 97 % 06/25/2015 3:38:00 PM 89 bpm [...] rpm 97.9 F 282 lbs 66 in 45.5155 kg/m 2.4406 m 96 % 11/24/2012 3:31:00 PM 128 mmHg 84 mmHg 80 bpm 18 rpm 97.9 F 278 lbs 67 in 43.54 kg/m2 2.44 m2 95 % 07/06/2012 3:39:00 PM 135 mmHg 82 mmHg 92 bpm 20 rpm 98.7 F 289.4 lbs 67 in 45.326 kg/m 2.4911 m 96 % 06/11/2012 3:28:00 PM 134 mmHg 92 mmHg 65 bpm 20 rpm 97 F 292 lbs 67 in 45.73 kg/m2 2.50 m2 96 % 05/07/2012 3:18:00 PM 112 mmHg 82 mmHg 72 bpm 18 rpm 97.4 F 284 lbs 67 in 44.4802 kg/m 2.4677 m 10/23/2011 4:27:00 PM 110 mmHg 70 mmHg [...] 05/10/2015 12:00 AM Decadron, Per [address] [facility]# [address]-91 Reviewed 05/10/2015 12:00 AM Rocephin [address] [facility]#0990-4736-60 Reviewed 05/10/2015 12:00 AM Depo-Medrol 40mg Reviewed 06/25/2015 12:00 AM THER/PROPH/DIAG INJ SC/IM Reviewed 06/25/2015 12:00 AM Decadron, Per [address] [facility]# [address]-46 Reviewed 09/23/2011 12:00 AM COMPREHEN METABOLIC PANEL [...] 06/11/2012 12:00 AM Decadron, Per [address] [facility]# [address]-50 Reviewed 06/11/2012 12:00 AM Depo-Medrol, Per [address] [facility]#0741-1846-52 Reviewed 07/06/2012 12:00 AM CHEST X-RAY 2VW [...] 05/02/2013 12:00 AM Depo-Medrol, Per [address] [facility]#9182-7708-32 Reviewed 05/02/2013 12:00 AM Decadron, Per [address] [facility]# [address]-56 Reviewed 09/21/2014 12:00 AM COMPLETE CBC W/AUTO [...] Fluzone Quadrivalent Not Entered Not Entered 02/28/2017 06/08/2016 150 History of Past Illness Name Date [...] Examination Following Surgery Mar 27 2011 10:33AM Fatigue Sep 23 2011 3:44PM Glucose Intolerance [...] 2017 3:48PM Cough Apr 07 2017 3:48PM Payers Insurance Name Company Name Plan Name Plan Number Policy Number Policy Group Number Start Date [facility]BS [facility] [place] [id number] N/A [facility] [facility] [place] [id number] Friday, 2011 [employer]BS [facility] [place] [id number] Wednesday, 2011 History of Encounters Visit Date Visit Type Provider 04/07/2017 Office visit Hussain Ledesma MORTGAGE LOAN REVIEWER 10/16/2016 Office visit Hussain Ledesma MORTGAGE LOAN REVIEWER 05/06/2016 Office visit Stephany Ng MD 06/25/2015 Office visit Mita Rios MORTGAGE LOAN REVIEWER 06/23/2015 Office visit Adolfo Paez PA-C 05/10/2015 Office visit Alia Sarabia MORTGAGE LOAN REVIEWER 11/06/2014 Office visit Mita Rios MORTGAGE LOAN REVIEWER 09/21/2014 Office visit Mita Rios MORTGAGE LOAN REVIEWER 08/10/2014 Office visit Mita Rios MORTGAGE LOAN REVIEWER 05/02/2013 Office visit Maureen Jerez MD 03/21/2013 Office visit Hussain Ledesma MORTGAGE LOAN REVIEWER 11/24/2012 Office visit Mita Rios MORTGAGE LOAN REVIEWER 07/06/2012 Office visit Mita Rios MORTGAGE LOAN REVIEWER 06/11/2012 Office visit Mita Rios MORTGAGE LOAN REVIEWER 05/07/2012 Office visit Mita Rios MORTGAGE LOAN REVIEWER 10/23/2011 Office visit Maureen Jerez MD 09/23/2011 Office visit Maureen Jerez MD 03/27/2011 Surgery Homero Catherine MD 03/21/2011 Surgery Homero Catherine MD 03/17/2011 Surgery Arden Magaña MD 03/07/2011 Surgery Homero Catherine MD 03/05/2011 Surgery Arden Magaña MD 03/03/2011 Surgery Arden Magaña MD 02/22/2011 Voided Homero Catherine MD 02/20/2011 Hospital OSMAN Neville MD 02/20/2011 Voided Homero Catherine MD 02/18/2011 [facility] Homero Catherine MD 02/11/2011 Surgery Homero Catherine MD 12/24/2010 Office visit Homero Catherine MD
--- OUTSIDE RECORDS SUMMARY | 2018-05-20 13:07 | XMS REPORT ---
Author Author Alia Sraabia [facility] Address [address] [place], [place] [address] Care Team Providers Care Guest Services Associate Name Role Phone Alia Sarabia PCP Allergies and Adverse Reactions Name Reaction Notes NO KNOWN DRUG ALLERGIES Plan of Treatment Planned Activity Comments Planned Date Planned Time Plan/Goal COMPUTER DX MAMMOGRAM ADD-ON 01/04/2013 12:00 AM Breast Ultrasound 01/04/2013 12:00 AM Medications Active Name Start Date Estimated Completion Date SIG Comments azithromycin 500 mg oral tablet 05/10/2015 05/15/2015 take 1 tablet (500 mg) by oral route once daily x 5 days promethazine-codeine 6.25-10 mg/5 mL oral syrup 05/10/2015 05/17/2015 take 5 milliliters by oral route every 4 hours as needed, not to exceed 30 mL in 24 hours for 7 days Name Start Date Expiration Date SIG Comments [...] 2 times per day for 5 days Discontinued Name Start Date Discontinued Date [...] oral route once daily for 90 days Problem List Description Status Onset Edema Active 10/23/2011 Hypothyroidism Active 03/21/2013 Vital Signs Date Time BP-Sys(mm[Hg] BP-Jessi(mm[Hg]) HR(bpm) RR(rpm) Temp WT HT HC BMI BSA BMI Percentile O2 Sat(%) 05/10/2015 5:07:00 PM 124 mmHg 66 mmHg [...] 05/10/2015 12:00 AM Decadron, Per 1 Mg [facility]# [address]-54 Reviewed 05/10/2015 12:00 AM Rocephin 1 gram [facility]#6980-7297-53 Reviewed 05/10/2015 12:00 AM Depo-Medrol 40mg Reviewed 09/23/2011 12:00 AM COMPREHEN METABOLIC PANEL Returned 09/23/2011 12:00 AM LIPID PANEL Returned 09/23/2011 12:00 AM GLYCOSYLATED HEMOGLOBIN TEST Returned 09/23/2011 12:00 AM ASSAY THYROID STIM HORMONE Returned 09/23/2011 12:00 AM COMPLETE CBC W/AUTO DIFF WBC Returned 09/23/2011 12:00 AM VITAMIN B-12 Returned 09/23/2011 12:00 AM ASSAY OF FREE TESTOSTERONE Reviewed 06/11/2012 12:00 AM THER/PROPH/DIAG INJ SC/IM Reviewed 06/11/2012 12:00 AM Decadron, Per 1 Mg [facility]# [address]-05 Reviewed 06/11/2012 12:00 AM Depo-Medrol, Per 80 Mg [facility]#5210-2858-85 Reviewed 07/06/2012 12:00 AM CHEST X-RAY 2VW FRONTAL&LATL Returned 07/06/2012 12:00 AM COMPLETE CBC W/AUTO DIFF WBC Returned 07/06/2012 12:00 AM COMPREHEN METABOLIC PANEL Returned 07/06/2012 12:00 AM MYCOPLASMA ANTIBODY Returned 11/24/2012 12:00 AM COMPREHEN METABOLIC PANEL Returned 11/24/2012 12:00 AM LIPID PANEL Returned 11/24/2012 12:00 AM COMPLETE CBC W/AUTO DIFF WBC Returned 11/24/2012 12:00 AM ASSAY THYROID STIM HORMONE Returned 11/24/2012 12:00 AM MAMMOGRAM SCREENING Returned 11/24/2012 12:00 AM POLYSOM 6/> YRS 4/> LATRELL Reviewed 12/08/2012 12:00 AM COMPUTER DX MAMMOGRAM ADD-ON Returned 03/21/2013 12:00 AM FREE ASSAY (FT-3) Reviewed 03/21/2013 12:00 AM ASSAY THYROID STIM HORMONE Reviewed 05/02/2013 12:00 AM CHEST X-RAY 2VW FRONTAL&LATL Returned 05/02/2013 12:00 AM X-RAY EXAM OF TOE(S) Returned 05/02/2013 12:00 AM THER/PROPH/DIAG INJ SC/IM Reviewed 05/02/2013 12:00 AM Depo-Medrol, Per 120 Mg [facility]#4410-6245-33 Reviewed 05/02/2013 12:00 AM Decadron, Per 1 Mg [facility]# [address]-85 Reviewed 09/21/2014 12:00 AM COMPLETE CBC W/AUTO DIFF WBC Returned 09/21/2014 12:00 AM COMPREHEN METABOLIC PANEL Returned 09/21/2014 12:00 AM LIPID PANEL Returned 10/09/2014 12:00 AM COMPREHEN METABOLIC PANEL Returned 02/13/2015 12:00 AM METABOLIC PANEL TOTAL CA Returned Results Summary Data and Description Results 02/11/2011 5:45 PM GLUCOSE 89.0 mg/dLSODIUM 141.0 mmol/LPOTASSIUM 4.30 mmol/ LCHLORIDE 108.0 mmol/LCO2 24.0 mmol/LBUN 11.0 mg/dLCREATININE 0.90 mg/dLSGOT/ AST 15.0 IU/LSGPT/ALT 19.0 IU/LALK PHOS 99.0 IU/LTOTAL PROTEIN 6.90 g/dLALBUMIN 3.90 g/dLTOTAL BILI 0.20 mg/dLCALCIUM 9.30 mg/dLeGFR >60 mL/min/1.73 m2WBC 8.1 RBC 5.05 HGB 14.50 g/dLHCT 43.40 %MCV 86.0 fLMCH 28.70 pgMCHC 33.40 g/dLRDW CV 13.40 %MPV 11.90 fLPLT 201 %NEUT 58.70 %%LYMP 33.40 %%MONO 6.80 %%EOS 0.70 %% BASO 0.40 %#NEUT 4.73 #LYMP 2.69 #MONO 0.55 #EOS 0.06 #BASO 0.03 02/18/2011 6:50 AM TEST UR NEGATIVE 02/19/2011 6:00 AM WBC 8.7 RBC 4.29 HGB 12.20 g/dLHCT 37.20 %MCV 87.0 fLMCH 28.40 pgMCHC 32.80 g/dLRDW CV 13.40 %MPV 11.30 fLPLT 171 GLUCOSE 118.0 mg/ dLSODIUM 141.0 mmol/LPOTASSIUM 3.80 mmol/LCHLORIDE 108.0 mmol/LCO2 24.0 mmol/ LBUN 9.0 mg/dLCREATININE 0.80 mg/dLCALCIUM 8.30 mg/dLeGFR >60 mL/min/1.73 m2 02/20/2011 5:31 PM GLUCOSE 103.0 mg/dLSODIUM 142.0 mmol/LPOTASSIUM 3.70 mmol/ LCHLORIDE 106.0 mmol/LCO2 27.0 mmol/LBUN 7.0 mg/dLCREATININE 0.80 mg/dLSGOT/AST 11.0 IU/LSGPT/ALT 18.0 IU/LALK PHOS 71.0 IU/LTOTAL PROTEIN 5.30 g/dLALBUMIN 3.20 g/dLTOTAL BILI 0.50 mg/dLCALCIUM 8.50 mg/dLeGFR >60 mL/min/1.73 m2WBC 9.4 RBC 3.95 HGB 11.20 g/dLHCT 34.40 %MCV 87.0 fLMCH 28.40 pgMCHC 32.60 g/dLRDW CV 13.20 %MPV 11.20 fLPLT 163 %NEUT 76.40 %%LYMP 11.70 %%MONO 9.20 %%EOS 2.50 %% BASO 0.20 %#NEUT 7.15 #LYMP 1.09 #MONO 0.86 #EOS 0.23 #BASO 0.02 02/21/2011 6:15 AM WBC 7.6 RBC 3.87 HGB 10.80 g/dLHCT 33.70 %MCV 87.0 fLMCH 27.90 pgMCHC 32.0 g/dLRDW CV 13.20 %MPV 11.30 fLPLT 168 09/27/2011 9:55 AM WBC 6.4 RBC 5.23 HGB 14.90 g/dLHCT 44.80 %MCV 86.0 fLMCH 28.50 pgMCHC 33.30 g/dLRDW CV 13.40 %MPV 11.80 fLPLT 193 %NEUT 61.0 %%LYMP 28.80 %%MONO 8.30 %%EOS 1.40 %%BASO 0.50 %#NEUT 3.89 #LYMP 1.84 #MONO 0.53 #EOS 0.09 #BASO 0.03 GLUCOSE 92.0 mg/dLSODIUM 143.0 mmol/LPOTASSIUM 4.30 mmol/ LCHLORIDE 111.0 mmol/LCO2 24.0 mmol/LBUN 14.0 mg/dLCREATININE 0.80 mg/dLSGOT/ AST 13.0 IU/LSGPT/ALT 14.0 IU/LALK PHOS 86.0 IU/LTOTAL PROTEIN 6.20 g/dLALBUMIN 4.10 g/dLTOTAL BILI 0.40 mg/dLCALCIUM 9.30 mg/dLeGFR 60 TSH 1.590 uIU/mLVITAMIN B12 229.0 pg/mLTRIGLYCERIDES 100.0 mg/dLCHOLESTEROL 161.0 mg/dLHDL 43.0 mg/ dLLDL (CALC) 98.0 mg/dL 07/06/2012 4:20 PM WBC 7.4 RBC 5.10 HGB 14.30 g/dLHCT 43.30 %MCV 85.0 fLMCH 28.0 pgMCHC 33.0 g/dLRDW CV 13.30 %MPV 11.50 fLPLT 212 %NEUT 59.10 %%LYMP 30.90 %%MONO 8.0 %%EOS 1.60 %%BASO 0.40 %#NEUT 4.36 #LYMP 2.28 #MONO 0.59 #EOS 0.12 # BASO 0.03 GLUCOSE 86.0 mg/dLSODIUM 140.0 mmol/LPOTASSIUM 4.40 mmol/LCHLORIDE 109.0 mmol/LCO2 24.0 mmol/LBUN 15.0 mg/dLCREATININE 0.90 mg/dLSGOT/AST 13.0 IU/ LSGPT/ALT 15.0 IU/LALK PHOS 85.0 IU/LTOTAL PROTEIN 6.90 g/dLALBUMIN 3.90 g/ dLTOTAL BILI 0.20 mg/dLCALCIUM 9.10 mg/dLeGFR 60 11/27/2012 4:47 AM GLUCOSE 100.0 mg/dLSODIUM 142.0 mmol/LPOTASSIUM 4.10 mmol/ LCHLORIDE 109.0 mmol/LCO2 22.0 mmol/LBUN 18.0 mg/dLCREATININE 0.80 mg/dLSGOT/ AST 13.0 IU/LSGPT/ALT 16.0 IU/LALK PHOS 87.0 IU/LTOTAL PROTEIN 6.50 g/dLALBUMIN 3.70 g/dLTOTAL BILI 0.30 mg/dLCALCIUM 9.50 mg/dLeGFR 60 TSH 3.850 uIU/mLWBC 7.9 RBC 5.11 HGB 14.60 g/dLHCT 43.90 %MCV 86.0 fLMCH 28.60 pgMCHC 33.30 g/dLRDW CV 13.0 %MPV 11.80 fLPLT 203 %NEUT 57.0 %%LYMP 34.80 %%MONO 7.0 %%EOS 0.90 %%BASO 0.30 %#NEUT 4.49 #LYMP 2.74 #MONO 0.55 #EOS 0.07 #BASO 0.02 TRIGLYCERIDES 117.0 mg/dLCHOLESTEROL 182.0 mg/dLHDL 44.0 mg/dLLDL (CALC) 115.0 mg/dL 03/29/2013 3:42 PM TSH 1.950 uIU/mL 09/23/2014 10:35 AM TRIGLYCERIDES 61.0 mg/dLCHOLESTEROL 157.0 mg/dLHDL 47.0 mg/ dLLDL (CALC) 98.0 mg/dLGLUCOSE 105.0 mg/dLSODIUM 144.0 mmol/LPOTASSIUM 4.50 mmol /LCHLORIDE 111.0 mmol/LCO2 24.0 mmol/LBUN 11.0 mg/dLCREATININE 1.0 mg/dLSGOT/ AST 13.0 IU/LSGPT/ALT 16.0 IU/LALK PHOS 78.0 IU/LTOTAL PROTEIN 6.90 g/dLALBUMIN 4.30 g/dLTOTAL BILI 0.60 mg/dLCALCIUM 9.70 mg/dLeGFR >60 mL/min/1.73 m2WBC 7.2 RBC 5.28 HGB 15.30 g/dLHCT 46.0 %MCV 87.0 fLMCH 29.0 pgMCHC 33.30 g/dLRDW CV 13.20 %MPV 12.30 fLPLT 190 %NEUT 62.10 %%LYMP 29.50 %%MONO 7.40 %%EOS 0.70 %% BASO 0.30 %#NEUT 4.47 #LYMP 2.12 #MONO 0.53 #EOS 0.05 #BASO 0.02 11/06/2014 5:10 PM GLUCOSE 79.0 mg/dLSODIUM 144.0 mmol/LPOTASSIUM 3.90 mmol/ LCHLORIDE 106.0 mmol/LCO2 26.0 mmol/LBUN 12.0 mg/dLCREATININE 1.0 mg/dLSGOT/AST 15.0 IU/LSGPT/ALT 16.0 IU/LALK PHOS 85.0 IU/LTOTAL PROTEIN 6.50 g/dLALBUMIN 4.20 g/dLTOTAL BILI 0.40 mg/dLCALCIUM 9.0 mg/dLeGFR >60 mL/min/1.73 m2 02/14/2015 5:01 PM GLUCOSE 85.0 mg/dLSODIUM 143.0 mmol/LPOTASSIUM 4.20 mmol/ LCHLORIDE 109.0 mmol/LCO2 27.0 mmol/LBUN 13.0 mg/dLCREATININE 0.90 mg/dLCALCIUM 9.20 mg/dLeGFR >60 mL/min/1.73m History Of Immunizations Not available. History of Past Illness Name Date of [...] 2015 5:09PM Wheezing May 10 2015 5:09PM Payers Insurance Name Company Name Plan Name Plan Number Policy Number Policy Group Number [facility] Date [id number] N/A [facility] [id number] Friday, 2011 [facility] [id number] Wednesday, 2011 History of Encounters Visit Date Visit Type Provider 05/10/2015 Office visit Alia Sarabia MECHANICAL SYSTEMS DESIGN ENGINEER 11/06/2014 Office visit Mita Rios MECHANICAL SYSTEMS DESIGN ENGINEER 09/21/2014 Office visit Mita Rios MECHANICAL SYSTEMS DESIGN ENGINEER 08/10/2014 Office visit Mita Rios MECHANICAL SYSTEMS DESIGN ENGINEER 05/02/2013 Office visit Maureen Jerez MD 03/21/2013 Office visit Hussain Ledesma MECHANICAL SYSTEMS DESIGN ENGINEER 11/24/2012 Office visit Mita Rios MECHANICAL SYSTEMS DESIGN ENGINEER 07/06/2012 Office visit Mita Rios MECHANICAL SYSTEMS DESIGN ENGINEER 06/11/2012 Office visit Mita Rios MECHANICAL SYSTEMS DESIGN ENGINEER 05/07/2012 Office visit Mita Rios MECHANICAL SYSTEMS DESIGN ENGINEER 10/23/2011 Office visit Maureen Jerez MD 09/23/2011 Office visit Maureen Jerez MD 03/27/2011 Surgery Homero Catherine MD 03/21/2011 Surgery Homero Catherine MD 03/17/2011 Surgery Arden Magaña MD 03/07/2011 Surgery Homero Catherine MD 03/05/2011 Surgery Arden Magaña MD 03/03/2011 Surgery Arden Magaña MD 02/22/2011 Voided Homero Catherine MD 02/20/2011 [facility] OSMAN Romo MD 02/20/2011 Voided Homero Catherine MD 02/18/2011 [facility] Homero Catherine MD 02/11/2011 Surgery Homero Catherine MD 12/24/2010 Office visit Homero Catherine MD
--- OUTSIDE RECORDS SUMMARY | 2018-05-20 13:07 | XMS REPORT ---
Author Author Hussain Ledesma [facility] Address [address] [place], [place] [id number] Care Team Providers Care Purchasing Analyst Name Role Phone Hussain Ledesma PCP Mita [...] take 1 capsule by oral route daily nystatin 100,000 unit/gram topical powder 10/14/2016 11/13/2016 apply to the affected area(s) by topical route 2 times per day for 30 days Name Start Date Expiration Date SIG [...] 2 times a day for 1 day doxycycline hyclate 100 mg oral capsule 10/16/2016 [...] HC BMI BSA BMI Percentile O2 Sat(%) 10/16/2016 4:22:00 PM 122 mmHg 80 mmHg [...] 12:00 AM Decadron, Per 1 Mg [facility]# [address]-08 Reviewed 05/10/2015 12:00 AM Rocephin 1 gram [facility]#4741-0426-45 Reviewed 05/10/2015 12:00 AM Depo-Medrol 40mg Reviewed 06/25/2015 12:00 AM THER/PROPH/DIAG INJ SC/IM Reviewed 06/25/2015 12:00 AM Decadron, Per 1 Mg [facility]# [address]-14 Reviewed 09/23/2011 12:00 AM COMPREHEN METABOLIC PANEL [...] Reviewed 05/13/2016 12:00 AM LIPID PANEL Returned 06/11/2012 12:00 AM THER/PROPH/DIAG INJ SC/IM Reviewed 06/11/2012 12:00 AM Decadron, Per 1 Mg [facility]# [address]-20 Reviewed 06/11/2012 12:00 AM Depo-Medrol, Per 80 Mg [facility]#4549-0301-46 Reviewed 07/06/2012 12:00 AM CHEST X-RAY 2VW [...] 12:00 AM Depo-Medrol, Per 120 Mg [facility]#2458-4929-78 Reviewed 05/02/2013 12:00 AM Decadron, Per 1 Mg [facility]# [address]-07 Reviewed 09/21/2014 12:00 AM COMPLETE CBC W/AUTO [...] 0.06 #BASO 0.03 MANUAL DIFF NOT IND 02/18/2011 6:50 AM TEST UR NEGATIVE 02/19/2011 6:00 AM WBC 8.7 RBC 4.29 HGB 12.20 g/dLHCT 37.20 %MCV 87.0 fLMCH 28.40 pgMCHC 32.80 g/dLRDW SD 43 RDW CV 13.40 %MPV 11.30 fLPLT 171 NRBC# 0.00 NRBC% 0.0 GLUCOSE 118.0 mg/dLSODIUM 141.0 mmol/LPOTASSIUM 3.80 mmol/LCHLORIDE 108.0 mmol/LCO2 24.0 mmol/LBUN 9.0 mg/dLCREATININE 0.80 mg/dLCALCIUM 8.30 mg/ dLAGE 37 GFR NonAA 81 GFR AA 98 eGFR >60 mL/min/1.73 m2eGFR AA* >60 02/20/2011 5:31 PM GLUCOSE 103.0 mg/dLSODIUM 142.0 mmol/LPOTASSIUM 3.70 mmol/ LCHLORIDE 106.0 mmol/LCO2 27.0 mmol/LBUN 7.0 mg/dLCREATININE 0.80 mg/dLSGOT/AST 11.0 IU/LSGPT/ALT 18.0 IU/LALK PHOS 71.0 IU/LTOTAL PROTEIN 5.30 g/dLALBUMIN 3.20 g/dLTOTAL BILI 0.50 mg/dLCALCIUM 8.50 mg/dLAGE 35 GFR NonAA 81 GFR AA 98 eGFR >60 mL/min/1.73 m2eGFR AA* >60 WBC 9.4 RBC 3.95 HGB 11.20 g/dLHCT 34.40 % MCV 87.0 fLMCH 28.40 pgMCHC 32.60 g/dLRDW SD 42 RDW CV 13.20 %MPV 11.20 fLPLT 163 NRBC# 0.00 NRBC% 0.0 %NEUT 76.40 %%LYMP 11.70 %%MONO 9.20 %%EOS 2.50 %%BASO 0.20 %#NEUT 7.15 #LYMP 1.09 #MONO 0.86 #EOS 0.23 #BASO 0.02 MANUAL DIFF NOT IND 02/21/2011 6:15 AM WBC 7.6 RBC 3.87 HGB 10.80 g/dLHCT 33.70 %MCV 87.0 fLMCH 27.90 pgMCHC 32.0 g/dLRDW SD 42 RDW CV 13.20 %MPV 11.30 fLPLT 168 NRBC# 0.00 NRBC% 0.0 09/27/2011 9:55 AM WBC 6.4 RBC 5.23 [...] AA 84 eGFR >60 mL/min/1.73meGFR AA* >60 05/18/2016 10:00 AM TSH 2.550 uIU/mLTRIGLYCERIDES 118.0 mg/dLCHOLESTEROL 173.0 mg/dLHDL 46.0 mg/dLTOT CHOL/HDL 3.8 LDL (CALC) 103.0 mg/dLWBC 6.9 RBC 5.26 HGB 14.80 g/dLHCT 45.90 %MCV 87.0 fLMCH 28.10 pgMCHC 32.20 g/dLRDW SD 41 RDW CV 12.80 %MPV 11.40 fLPLT 204 NRBC# 0.00 NRBC% 0.0 %NEUT 55.80 %%LYMP 33.10 %%MONO 7.50 %%EOS 2.90 %%BASO 0.40 %#NEUT 3.87 #LYMP 2.30 #MONO 0.52 #EOS 0.20 # BASO 0.03 MANUAL DIFF NOT IND GLUCOSE 91.0 mg/dLSODIUM 141.0 mmol/LPOTASSIUM 4.30 mmol/LCHLORIDE 108.0 mmol/LCO2 24.0 mmol/LBUN 11.0 mg/dLCREATININE 0.90 mg/ dLCALCIUM 9.10 mg/dLAGE 40 GFR NonAA 69 GFR AA 84 eGFR >60 mL/min/1.73meGFR AA * >60 History Of Immunizations Not available. History of [...] bronchitis, unspecified organism Oct 16 2016 4:24PM Payers Insurance Name Company Name Plan Name Plan Number Policy Number Policy Group Number Start Date [employer] [place] [id number] N/A [employer] [place] [id number] Friday, 2011 [employer] [place] [id number] Wednesday, 2011 History of Encounters Visit Date Visit Type Provider 10/16/2016 Office visit Hussain Ledesma SENIOR SQL SERVER DBA 05/06/2016 Office visit Stephany Ng MD 06/25/2015 Office visit Mita Rios SENIOR SQL SERVER DBA 06/23/2015 Office visit Adolfo Paez PA-C 05/10/2015 Office visit Alia Sarabia SENIOR SQL SERVER DBA 11/06/2014 Office visit Mita Rios SENIOR SQL SERVER DBA 09/21/2014 Office visit Mita Rios SENIOR SQL SERVER DBA 08/10/2014 Office visit Mita Rios SENIOR SQL SERVER DBA 05/02/2013 Office visit Maureen Jerez MD 03/21/2013 Office visit Hussain Ledesma SENIOR SQL SERVER DBA 11/24/2012 Office visit Mita Rios SENIOR SQL SERVER DBA 07/06/2012 Office visit Mita Rios SENIOR SQL SERVER DBA 06/11/2012 Office visit Mita Rios SENIOR SQL SERVER DBA 05/07/2012 Office visit Mita Rios SENIOR SQL SERVER DBA 10/23/2011 Office visit Maureen Jerez MD 09/23/2011 Office visit Maureen Jerez MD 03/27/2011 Surgery Homero Catherine MD 03/21/2011 Surgery Homero Catherine MD 03/17/2011 Surgery Arden Magaña MD 03/07/2011 Surgery Homero Catherine MD 03/05/2011 Surgery Arden Magaña MD 03/03/2011 Surgery Arden Magaña MD 02/22/2011 Voided Homero Catherine MD 02/20/2011 [facility] OSMAN Romo MD 02/20/2011 Voided Homero Catherine MD 02/18/2011 [facility] Homero Catherine MD 02/11/2011 Surgery Homero Catherine MD 12/24/2010 Office visit Homero Catherine MD
--- OUTSIDE RECORDS SUMMARY | 2018-05-20 13:08 | XMS REPORT ---
Author Author Mita Rios [facility] Address [address] [place] [id number] Care Team Providers Care Bogger Operator Name Role Phone Mita Rios PCP Unavailable Allergies and Adverse Reactions Name Reaction Notes NO KNOWN DRUG ALLERGIES azithromycin cramping Plan of Treatment Planned Activity Comments Planned Date Planned Time Plan/Goal AIRWAY INHALATION TREATMENT 06/23/2015 12:00 AM THER/PROPH/DIAG INJ SC/IM 06/25/2015 12:00 AM COMPUTER DX MAMMOGRAM ADD-ON 01/04/2013 12:00 AM Breast Ultrasound 01/04/2013 12:00 AM Medications Active Name Start Date Estimated Completion Date SIG Comments Symbicort 160-4.5 mcg/actuation inhalation HFA aerosol inhaler 06/23/2015 inhale 2 puffs by inhalation route 2 times per day in the morning and evening Medrol (Adan) 4 mg oral tablets,dose pack 06/25/2015 take as directed promethazine-codeine 6.25-10 mg/5 mL oral syrup 06/25/2015 take 5 milliliters by oral route every [...] 7 days valacyclovir 1 gram oral tablet 06/23/2015 06/24/2015 take 2 tablets by oral route 2 times a day for 1 day Discontinued Name Start Date Discontinued Date SIG [...] HC BMI BSA BMI Percentile O2 Sat(%) 06/25/2015 3:38:00 PM 89 bpm 20 rpm [...] 05/10/2015 12:00 AM Decadron, Per 1 Mg [facility]# [address]-02 Reviewed 05/10/2015 12:00 AM Rocephin 1 gram ND#8234-8726-92 Reviewed 05/10/2015 12:00 AM Depo-Medrol 40mg Reviewed [...] 06/11/2012 12:00 AM Decadron, Per 1 Mg [facility]# [address]-06 Reviewed 06/11/2012 12:00 AM Depo-Medrol, Per 80 Mg ND#0712-5985-98 Reviewed 07/06/2012 12:00 AM CHEST X-RAY 2VW [...] 05/02/2013 12:00 AM Depo-Medrol, Per 120 Mg [facility]#2591-5638-97 Reviewed 05/02/2013 12:00 AM Decadron, Per 1 Mg [facility]# [address]-80 Reviewed 09/21/2014 12:00 AM COMPLETE CBC W/AUTO [...] upper respiratory infection Jun 25 2015 3:39PM Payers Insurance Name Company Name Plan Name Plan Number Policy Number Policy Group Number Start Date [employer] [place] [id number] N/A [employer] [place] [id number] Friday, 2011 [employer] [place] [id number] Wednesday, 2011 History of Encounters Visit Date Visit Type Provider 06/25/2015 Office visit Mita Rios MACHINE ROUGH ROUNDER 06/23/2015 Office visit Adolfo Paez PA-C 05/10/2015 Office visit Alia Sarabia MACHINE ROUGH ROUNDER 11/06/2014 Office visit Mita Rios MACHINE ROUGH ROUNDER 09/21/2014 Office visit Mita Rios MACHINE ROUGH ROUNDER 08/10/2014 Office visit Mita Rios MACHINE ROUGH ROUNDER 05/02/2013 Office visit Maureen Jerez MD 03/21/2013 Office visit Hussain Ledesma MACHINE ROUGH ROUNDER 11/24/2012 Office visit Mita Rios MACHINE ROUGH ROUNDER 07/06/2012 Office visit Mita Rios MACHINE ROUGH ROUNDER 06/11/2012 Office visit Mita Rios MACHINE ROUGH ROUNDER 05/07/2012 Office visit Mita Rios MACHINE ROUGH ROUNDER 10/23/2011 Office visit Maureen Jerez MD 09/23/2011 Office visit Maureen Jerez MD 03/27/2011 Surgery Homero Catherine MD 03/21/2011 Surgery Homero Catherine MD 03/17/2011 Surgery Arden Magaña MD 03/07/2011 Surgery Homero Catherine MD 03/05/2011 Surgery Arden Magaña MD 03/03/2011 Surgery Arden Magaña MD 02/22/2011 Voided Homero Catherine MD 02/20/2011 [facility] OSMAN Romo MD 02/20/2011 Voided Homero Catherine MD 02/18/2011 [facility] Homero Catherine MD 02/11/2011 Surgery Homero Catherine MD 12/24/2010 Office visit Homero Catherine MD
--- OUTSIDE RECORDS SUMMARY | 2018-05-20 13:09 | XMS REPORT ---
Author Author Mita Rios [facility] Address [address] [place] [id number] Care Team Providers Care Taping Machine Operator Name Role Phone Mita Rios PCP Unavailable Allergies and Adverse Reactions Name Reaction Notes NO KNOWN DRUG ALLERGIES Plan of Treatment Planned Activity Comments Planned Date Planned Time Plan/Goal COMPUTER DX MAMMOGRAM ADD-ON 01/04/2013 12:00 AM Breast Ultrasound 01/04/2013 12:00 AM METABOLIC PANEL TOTAL CA 02/13/2015 12:00 AM Medications Active Name Start Date Estimated Completion Date SIG Comments albuterol sulfate 90 mcg/actuation inhalation HFA aerosol inhaler 06/11/2012 inhale 1 - 2 puffs by inhalation route every 6 hours as needed Famvir 500 mg oral tablet 08/10/2014 take 3 tablets (1500 mg) by oral route once within first hour of symptoms phentermine 37.5 mg oral tablet 11/06/2014 take 1 tablet (37.5 mg) by oral route once daily before breakfast Name Start Date Expiration Date SIG Comments [...] 7 days omeprazole 20 mg oral capsule,delayed release(/EC) 06/03/2013 07/03/2013 take 1 capsule (20 mg) by oral route once daily before a meal for 30 days Zyrtec 10 mg oral tablet 06/03/2013 10/01/2013 take 1 tablet by oral route daily for 30 days Tamiflu 75 mg oral capsule 05/30/2014 06/04/2014 take 1 capsule (75 mg) by oral route 2 times per day for 5 days furosemide 20 mg oral tablet 09/25/2014 12/24/2014 take 1 tablet (20 mg) by oral route once daily for 90 days Discontinued Name Start Date Discontinued Date [...] by oral route 2 times a day Tessalon Perles 100 mg oral capsule 06/11/2012 [...] oral route once daily for 4 days Problem List Description Status Onset Edema Active 10/23/2011 Hypothyroidism Active 03/21/2013 Vital Signs Date Time BP-Sys(mm[Hg] BP-Jessi(mm[Hg]) HR(bpm) RR(rpm) Temp WT HT HC BMI BSA BMI Percentile O2 Sat(%) 11/06/2014 4:14:00 PM 114 mmHg 78 mmHg 88 bpm 20 rpm 97.7 F 269.6 lbs 67 in 42.22 kg/m2 2.40 m2 97 % 09/21/2014 3:20:00 PM 118 mmHg 80 mmHg 62 bpm 18 rpm 97.2 F 277.25 lbs 67 in 43.423 kg/m 2.4382 m 97 % 08/10/2014 4:06:00 PM 122 mmHg 80 mmHg 76 bpm 20 rpm 97.3 F 292.6 lbs 67 in 45.83 kg/m2 2.50 m2 95 % 05/02/2013 3:20:00 PM 122 mmHg [...] rpm 97.6 F 285.125 lbs 67 in 44.66 kg/m2 2.47 m2 94 % 03/27/2011 10:38:00 AM 107 mmHg 72 mmHg 65 bpm 97.2 F 03/21/2011 1:34:00 PM 126 mmHg 62 mmHg 78 bpm 98 F 279 lbs 67 in 43.6971 kg/m 2.45 m2 03/17/2011 10:11:00 AM 126 mmHg 74 mmHg 62 bpm 97.4 F 280 lbs 03/07/2011 3:53:00 PM 124 mmHg 82 mmHg 86 bpm 96.4 F 03/05/2011 9:23:00 AM 138 mmHg 82 mmHg 98 F 278 lbs 03/03/2011 10:54:00 AM 131 mmHg 85 mmHg 75 bpm 97.1 F 02/11/2011 4:37:00 PM 126 mmHg 74 mmHg 69 bpm 98.8 F 288 lbs 66 in 46.48 kg/m2 2.4664 m 12/24/2010 3:31:00 PM 112 mmHg 71 mmHg 76 bpm 97.6 F 286 lbs 66 in 46.1611 kg/m 2.46 m2 Social History Name Description Comments Tobacco Never smoker Alcohol Never History of Procedures Date Ordered Description Order Status 02/11/2011 12:00 AM COMPLETE CBC W/AUTO DIFF WBC Reviewed 02/11/2011 12:00 AM COMPREHEN METABOLIC PANEL Reviewed 02/11/2011 12:00 AM Type and screen Reviewed 09/23/2011 12:00 AM COMPREHEN METABOLIC PANEL [...] 12:00 AM Decadron, Per 1 Mg [facility]# [address]-49 Reviewed 06/11/2012 12:00 AM Depo-Medrol, Per 80 Mg [facility]#8719-9056-33 Reviewed 07/06/2012 12:00 AM CHEST X-RAY 2VW [...] 12:00 AM Depo-Medrol, Per 120 Mg [facility]#8658-4252-83 Reviewed 05/02/2013 12:00 AM Decadron, Per 1 Mg [facility]# [address]-83 Reviewed 09/21/2014 12:00 AM COMPLETE CBC W/AUTO DIFF WBC Returned 09/21/2014 12:00 AM COMPREHEN METABOLIC PANEL Returned 09/21/2014 12:00 AM LIPID PANEL Returned 10/09/2014 12:00 AM COMPREHEN METABOLIC PANEL Returned Results Summary Data and Description Results [...] 161.0 mg/dLHDL 43.0 mg/ dLLDL (CALC) 98.0 mg/dLGLYCOHEMOGLOBIN A1C 5.30 % 07/06/2012 [...] 0.40 mg/dLCALCIUM 9.0 mg/dLeGFR >60 mL/min/1.73 m2 History Of Immunizations Not available. History of [...] 2014 4:17PM Hypokalemia Feb 13 2015 3:22PM Payers Insurance Name Company Name Plan Name Plan Number Policy Number Policy Group Number Start Date [employer] [place] [id number] N/A [employer] [place] [id number] Friday, 2011 [employer] [place] [id number] Wednesday, 2011 History of Encounters Visit Date Visit Type Provider 11/06/2014 Office visit Mita Rios PASSENGER SERVICE SUPERVISOR 09/21/2014 Office visit Mita Rios PASSENGER SERVICE SUPERVISOR 08/10/2014 Office visit Mita Rios PASSENGER SERVICE SUPERVISOR 05/02/2013 Office visit Maureen Jerez MD 03/21/2013 Office visit Hussain Ledesma PASSENGER SERVICE SUPERVISOR 11/24/2012 Office visit Mita Rios PASSENGER SERVICE SUPERVISOR 07/06/2012 Office visit Mita Rios PASSENGER SERVICE SUPERVISOR 06/11/2012 Office visit Mita Rios PASSENGER SERVICE SUPERVISOR 05/07/2012 Office visit Mita Rios PASSENGER SERVICE SUPERVISOR 10/23/2011 Office visit Maureen Jerez MD 09/23/2011 Office visit Maureen Jerez MD 03/27/2011 Surgery Homero Catherine MD 03/21/2011 Surgery Homero Catherine MD 03/17/2011 Surgery Arden Magaña MD 03/07/2011 Surgery Homero Catherine MD 03/05/2011 Surgery Arden Magaña MD 03/03/2011 Surgery Arden Magaña MD 02/22/2011 Voided Homero Catherine MD 02/20/2011 [facility] OSMAN Romo MD 02/20/2011 Voided Homero Catherine MD 02/18/2011 [facility] Homero Catherine MD 02/11/2011 Surgery Homero Catherine MD 12/24/2010 Office visit Homero Catherine MD
--- OUTSIDE RECORDS SUMMARY | 2018-05-20 13:10 | XMS REPORT ---
Author Author Adolfo Paez [facility] Address [address] [place], [place] [id number] Care Team Providers Care Sales Support Assistant Name Role Phone Adolfo Paez PCP Unavailable Allergies and Adverse Reactions Name Reaction Notes NO KNOWN DRUG ALLERGIES azithromycin cramping Plan of Treatment Planned Activity Comments Planned Date Planned Time Plan/Goal AIRWAY INHALATION TREATMENT 06/23/2015 12:00 AM COMPUTER DX MAMMOGRAM ADD-ON 01/04/2013 12:00 AM Breast Ultrasound 01/04/2013 12:00 AM Medications Active Name Start Date Estimated Completion Date SIG Comments Symbicort 160-4.5 mcg/actuation inhalation HFA aerosol inhaler 06/23/2015 inhale 2 puffs by inhalation route 2 times per day in the morning and evening Name Start Date Expiration Date SIG Comments [...] HC BMI BSA BMI Percentile O2 Sat(%) 06/23/2015 9:11:00 AM 126 mmHg 74 mmHg 97 bpm 18 rpm 98.3 F 262.187 lbs 67 in 41.06 kg/m2 2.37 m2 95 % 05/10/2015 5:07:00 PM 124 mmHg 66 mmHg 82 bpm 18 rpm 96.6 F 265.125 lbs 67 in 41.524 kg/m 2.3843 m 98 % 11/06/2014 4:14:00 PM 114 mmHg [...] bpm 98 F 279 lbs 67 in 43.70 kg/m2 2.45 m2 03/17/2011 10:11:00 AM 126 mmHg [...] 05/10/2015 12:00 AM Decadron, Per 1 Mg [facility]# [address]-57 Reviewed 05/10/2015 12:00 AM Rocephin 1 gram [facility]#7282-3055-75 Reviewed 05/10/2015 12:00 AM Depo-Medrol 40mg Reviewed [...] 06/11/2012 12:00 AM Decadron, Per 1 Mg [facility]# [address]-51 Reviewed 06/11/2012 12:00 AM Depo-Medrol, Per 80 Mg [facility]#8081-6562-80 Reviewed 07/06/2012 12:00 AM CHEST X-RAY 2VW [...] 05/02/2013 12:00 AM Depo-Medrol, Per 120 Mg [facility]#2341-6660-18 Reviewed 05/02/2013 12:00 AM Decadron, Per 1 Mg [facility]# [address]-71 Reviewed 09/21/2014 12:00 AM COMPLETE CBC W/AUTO [...] 5.10 HGB 14.30 g/dLHCT 43.30 %MCV 85.0 [facility] 28.0 pgHC 33.0 g/dLRDW CV 13.30 %MPV 11.50 fLPLT [...] Upper respiratory infection Jun 23 2015 9:13AM Payers Insurance Name Company Name Plan Name Plan Number Policy Number Policy Group Number Start Date [employer] [place] [id number] N/A [employer] [place] [id number] Friday, 2011 [employer] [place] [id number] Wednesday, 2011 History of Encounters Visit Date Visit Type Provider 06/23/2015 Office visit Adolfo Paez PA-C 05/10/2015 Office visit Alia Sarabia LACE SEWER 11/06/2014 Office visit Mita Rios LACE SEWER 09/21/2014 Office visit Mita Rios LACE SEWER 08/10/2014 Office visit Mita Rios LACE SEWER 05/02/2013 Office visit Maureen Jerez MD 03/21/2013 Office visit Hussain Ledesma LACE SEWER 11/24/2012 Office visit Mita Rios LACE SEWER 07/06/2012 Office visit Mita Rios LACE SEWER 06/11/2012 Office visit Mita Rios LACE SEWER 05/07/2012 Office visit Mita Rios LACE SEWER 10/23/2011 Office visit Maureen Jerez MD 09/23/2011 Office visit Maureen Jerez MD 03/27/2011 Surgery Homero Catherine MD 03/21/2011 Surgery Homero Catherine MD 03/17/2011 Surgery Arden Magaña MD 03/07/2011 Surgery Homero Catherine MD 03/05/2011 Surgery Arden Magaña MD 03/03/2011 Surgery Arden Magaña MD 02/22/2011 Voided Homero Catherine MD 02/20/2011 [facility] OSMAN Romo MD 02/20/2011 Voided Homero Catherine MD 02/18/2011 Hospital Homero Catherine MD 02/11/2011 Surgery Homero Catherine MD 12/24/2010 Office visit Homero Catherine MD
--- OUTSIDE RECORDS SUMMARY | 2018-05-20 13:13 | XMS REPORT ---
Author Author Stephany Ng Organization [facility] Address [address] [place], [place] [id number] Care Team Providers Care Towel Rolling Machine Operator Name Role Phone Stephany Ng PCP Mita Rios PreferredProvider Unavailable Allergies and [...] take 1 capsule by oral route daily Name Start Date [...] HC BMI BSA BMI Percentile O2 Sat(%) 05/06/2016 4:20:00 PM 140 mmHg 94 mmHg [...] 05/10/2015 12:00 AM Decadron, Per 1 Mg [facility]# [address]-84 Reviewed 05/10/2015 12:00 AM Rocephin 1 gram [facility]#9855-6066-00 Reviewed 05/10/2015 12:00 AM Depo-Medrol 40mg Reviewed 06/25/2015 12:00 AM THER/PROPH/DIAG INJ SC/IM Reviewed 06/25/2015 12:00 AM Decadron, Per 1 Mg [facility]# [address]-67 Reviewed 09/23/2011 12:00 AM COMPREHEN METABOLIC PANEL [...] 12:00 AM ASSAY THYROID STIM HORMONE Returned 05/13/2016 12:00 AM LIPID PANEL Returned 06/11/2012 12:00 AM THER/PROPH/DIAG INJ SC/IM Reviewed 06/11/2012 12:00 AM Decadron, Per 1 Mg [place]# [address]-07 Reviewed 06/11/2012 12:00 AM Depo-Medrol, Per 80 Mg ND#6643-1605-68 Reviewed 07/06/2012 12:00 AM CHEST X-RAY 2VW [...] 05/02/2013 12:00 AM Depo-Medrol, Per 120 Mg [facility]#7701-5137-27 Reviewed 05/02/2013 12:00 AM Decadron, Per 1 Mg ND# [address]-98 Reviewed 09/21/2014 12:00 AM COMPLETE CBC W/AUTO DIFF WBC Reviewed 09/21/2014 12:00 AM COMPREHEN METABOLIC PANEL Reviewed 09/21/2014 12:00 AM LIPID PANEL Reviewed 10/09/2014 12:00 AM COMPREHEN METABOLIC PANEL Reviewed 02/13/2015 12:00 AM METABOLIC PANEL TOTAL CA Reviewed Results Summary Data and Description Results 02/11/2011 [...] Well adult exam May 06 2016 4:19PM Payers Insurance Name Company Name Plan Name Plan Number Policy Number Policy Group Number [id number] N/A [facility] [id number] Friday, 2011 [facility] [id number] Wednesday, 2011 History of Encounters Visit Date Visit Type Provider 05/06/2016 Office visit Stephany Ng MD 06/25/2015 Office visit Mita Rios SENIOR DRAFTER 06/23/2015 Office visit Adolfo Paez PA-C 05/10/2015 Office visit Alia Sarabia SENIOR DRAFTER 11/06/2014 Office visit Mita Rios SENIOR DRAFTER 09/21/2014 Office visit Mita Rios SENIOR DRAFTER 08/10/2014 Office visit Mita Rios SENIOR DRAFTER 05/02/2013 Office visit Maureen Jerez MD 03/21/2013 Office visit Hussain Ledesma SENIOR DRAFTER 11/24/2012 Office visit Mita Rios SENIOR DRAFTER 07/06/2012 Office visit Mita Rios SENIOR DRAFTER 06/11/2012 Office visit Mita Rios SENIOR DRAFTER 05/07/2012 Office visit Mita Rios SENIOR DRAFTER 10/23/2011 Office visit Maureen Jerez MD 09/23/2011 Office visit Maureen Jerez MD 03/27/2011 Surgery Homero Cathernie MD 03/21/2011 Surgery Homero Catherine MD 03/17/2011 Surgery Arden Magaña MD 03/07/2011 Surgery Homero Catherine MD 03/05/2011 Surgery Arden Magaña MD 03/03/2011 Surgery Arden Magaña MD 02/22/2011 Voided Homero Catherine MD 02/20/2011 [facility] OSMAN Romo MD 02/20/2011 Voided Homero Catherine MD 02/18/2011 [facility] Homero Catherine MD 02/11/2011 Surgery Homero Catherine MD 12/24/2010 Office visit Homero Catherine MD
--- OUTSIDE RECORDS SUMMARY | 2018-05-20 13:14 | XMS REPORT ---
Author Author [facility] Organization [facility] Address [address] [place], [place] [id number] Care Team Providers Care Structures Technician Name Role Phone PCP Unavailable Allergies and Adverse Reactions Name Reaction Notes NO KNOWN DRUG ALLERGIES Plan of Treatment Planned Activity Comments Planned Date Planned Time Plan/Goal COMPUTER DX MAMMOGRAM ADD-ON 01/04/2013 12:00 AM Breast Ultrasound 01/04/2013 12:00 AM COMPREHEN METABOLIC PANEL 10/09/2014 12:00 AM Medications Active Name Start Date Estimated Completion Date SIG Comments albuterol sulfate Inhalation HFA Aerosol Inhaler 90 mcg/actuation 06/11/2012 inhale 1 - 2 puffs by inhalation route every 6 hours as needed Famvir oral tablet 500 mg 08/10/2014 take 3 tablets (1500 mg) by oral route once within first hour of symptoms furosemide oral tablet 20 mg 09/25/2014 12/24/2014 take 1 tablet (20 mg) by oral route once daily for 90 days phentermine oral tablet 37.5 mg 11/06/2014 take 1 tablet (37.5 mg) by oral route once daily before breakfast Name Start Date Expiration Date SIG Comments ondansetron Oral Tablet, Rapid Dissolve 8 mg 02/11/2011 02/18/2011 take 1 tablet (8 mg) and place on top of the tongue where it will dissolve, then swallow by oral route every 8 hours for 7 days Levaquin Oral Tablet 750 mg 03/03/2011 03/17/2011 take 1 tablet (750 mg) by oral route once daily for 14 days Bactrim DS Oral Tablet 800-160 mg 03/21/2011 03/28/2011 take 1 tablet by oral route every 12 hours for 7 days Zithromax Z-Adan Oral tablet 250 mg 05/07/2012 05/12/2012 take 2 tablets (500 mg) by oral route once daily for 1 day then 1 tablet (250 mg) by oral route once daily for 4 days Vibramycin Oral capsule 100 mg 06/11/2012 06/21/2012 take 1 capsule (100 mg) by oral route every 12 hours for 10 days amoxicillin Oral capsule 500 mg 03/21/2013 03/28/2013 take 1 capsule (500 mg ) by oral route every 8 hours for 7 days omeprazole oral capsule,delayed release(DR/EC) 20 mg 06/03/2013 07/03/2013 take 1 capsule (20 mg) by oral route once daily before a meal for 30 days Zyrtec oral tablet 10 mg 06/03/2013 10/01/2013 take 1 tablet by oral route daily for 30 days Tamiflu oral capsule 75 mg 05/30/2014 06/04/2014 take 1 capsule (75 mg) by oral route 2 times per day for 5 days Discontinued Name Start Date Discontinued Date SIG Comments Lasix Oral Tablet 40 mg 09/23/2011 take 1 tablet (40 mg) by oral route once daily Motrin Oral Tablet 800 mg 02/11/2011 03/21/2011 take 1 tablet by oral route every 8 hours as needed Percocet Oral Tablet 5-325 mg 02/11/2011 03/07/2011 take 1 tablet by oral route every 4-6 hours as needed Klor-Con M20 Oral Tablet, ER Particles/Crystals 20 mEq 10/23/2011 08/10/2014 take 1 tablet (20 meq) by oral route once daily with food phentermine Oral Capsule 37.5 mg 10/23/2011 11/24/2012 take 1 capsule (37.5 mg ) by oral route once daily before breakfast for 30 days furosemide Oral Tablet 20 mg 12/09/2011 08/10/2014 take 1 tablet by oral route 2 times a day Tessalon Perles Oral capsule 100 mg 06/11/2012 08/10/2014 take 1 capsule by oral route 3 times a day as needed levothyroxine Oral tablet 50 mcg 11/29/2012 05/02/2013 take 1 tablet (50 mcg ) by oral route once daily promethazine-codeine Oral Syrup 6.25-10 mg/5 mL 03/21/2013 08/10/2014 take 5 milliliters by oral route every 4-6 hours as needed, not to exceed 30 mL in 24 hours phentermine oral tablet 37.5 mg 05/02/2013 08/10/2014 take 1 tablet (37.5 mg) by oral route once daily before breakfast Zithromax Z-Adan oral tablet 250 mg 08/10/2014 take 2 tablets (500 mg) by oral route once daily for 1 day then 1 tablet (250 mg) by oral route once daily for 4 days Problem List Description Status Onset Edema Active 10/23/2011 hypothyroidism Active 03/21/2013 Vital Signs Date Time BP-Sys(mm[Hg] [...] Name Description Comments Tobacco Never smoker Alcohol History of Procedures Date Ordered Description Order [...] 06/11/2012 12:00 AM THER/PROPH/DIAG INJ SC/IM Reviewed 07/06/2012 12:00 AM CHEST X-RAY 2VW [...] 05/02/2013 12:00 AM THER/PROPH/DIAG INJ SC/IM Reviewed 09/21/2014 12:00 AM COMPLETE CBC W/AUTO DIFF WBC Returned 09/21/2014 12:00 AM COMPREHEN METABOLIC PANEL Returned 09/21/2014 12:00 AM LIPID PANEL Returned Results Summary Data and Description [...] 5.10 HGB 14.30 g/dLHCT 43.30 %MCV 85.0 fLH 28.0 pgMCHC 33.0 g/dLRDW CV 13.30 %MPV [...] 2.12 #MONO 0.53 #EOS 0.05 #BASO 0.02 History Of Immunizations Not available. History of Past Illness Name Date of Onset Comments Edema 10/23/2011 hypothyroidism 03/21/2013 Dysmenorrhea Dec 24 2010 3:30PM Pelvic [...] Index 40.0-44.9, adult Nov 06 2014 4:17PM Payers Insurance Name Company Name Plan Name Plan Number Policy Number Policy Group Number Start Date [employer] [place] [id number] N/A [employer] [facility] [id number] Friday, 2011 [employer] [place] [id number] Wednesday, 2011 History of Encounters Visit Date Visit Type Provider 11/06/2014 Office visit Mita Rios [employer] SPECIALIST 09/21/2014 Office visit Mita Rios FIRE CREW SPECIALIST 08/10/2014 Office visit Mita Rios FIRE CREW SPECIALIST 05/02/2013 Office visit Maureen Jerez MD 03/21/2013 Office visit Hussain Ledesma FI[employer] CREW SPECIALIST 11/24/2012 Office visit Mita Rios FIRE CREW SPECIALIST 07/06/2012 Office visit Mita Rios FIRE CREW SPECIALIST 06/11/2012 Office visit Mita Rios FIRE CREW SPECIALIST 05/07/2012 Office visit Mita Rios FIRE CREW SPECIALIST 10/23/2011 Office visit Maureen Jerez MD 09/23/2011 Office visit Maureen Jerez MD 03/27/2011 Surgery Homero Catherine MD 03/21/2011 Surgery Homero Catherine MD 03/17/2011 Surgery Arden aMgaña MD 03/07/2011 Surgery Homero Catherine MD 03/05/2011 Surgery Arden Magaña MD 03/03/2011 Surgery Arden Magaña MD 02/22/2011 Voided Homero Catherine MD 02/20/2011 [facility] OSMAN Romo MD 02/20/2011 Voided Homero Catherine MD 02/18/2011 [facility] Homero Catherine MD 02/11/2011 Surgery Homero Catherine MD 12/24/2010 Office visit Homero Catherine MD
--- OUTSIDE RECORDS SUMMARY | 2018-05-20 13:14 | XMS REPORT ---
Author Author RICHI BATES Organization [facility] Address [address] [place] [address] Care Team Providers Care Help Desk Intern Name Role Phone RICHI BATES Unavailable PROBLEMS Unknown Problems ALLERGIES No Information ENCOUNTERS Encounter Location Date Diagnosis [facility] [address] [facility] [id number] [place] [address] Mar, No condition on [place] I Z03.89 IMMUNIZATIONS No Known Immunizations SOCIAL HISTORY Never Assessed REASON FOR VISIT Psychologiclal evaluation for bariatric surgery. PLAN OF CARE VITAL SIGNS MEDICATIONS Unknown Medications RESULTS No Results PROCEDURES Procedure Date Ordered Result Body Site Psych diagnostic evaluation, new patient Mar 15, 2018 INSTRUCTIONS MEDICATIONS ADMINISTERED No Known Medications
--- OUTSIDE RECORDS SUMMARY | 2018-05-20 13:14 | XMS REPORT | Continuity of Care Document ---
Author Author [facility] Address Unknown Phone Unavailable Allergies Active Description Code Type Severity Reaction Onset Reported/Identified Relationship to Patient Clinical Status Yes AUGMENTIN Drug Allergy N/A DIARRHEA Yes No Known Allergies [id number] N /A N/A Yes AUGMENTIN MILD OTHER Yes LEVAQUIN MILD SIDE EFFECT Yes amoxicillin [id number] Drug Allergy Unknown N/A 04/22/2018 Yes clavulanic acid [id number] Drug Allergy Unknown N/A 04/22/2018 Medications Medication Packaging Start Date Stop Date Route Dosage Sig NORMAL SALINE 1000CC IV BAG INJ 0.9 % (NS 1000CC IV BAG) ml 03/19/2018 04/03/2018 CONTINUOUSEVERY 0 Hour LACTATED RINGERS 1000CC IV BAG INJ ml 05/12/2018 05/19/2018 CONTINUOUSEVERY 0 Hour CLINDAMYCIN 600MG/50CC BAG IV 600 MG/50CC (CLEOCIN PREMIX 600MG/ 50CC) MG 05/12/2018 05/12/2018 ONCE&0800 GENTAMICIN VIAL INJ 80 MG/2CC (GARAMYCIN VIAL) MG 05/12/2018 05/12/2018 ONCE&0800 MORPHINE MANAGER LICENSING SYRINGE INJ 30 MG/30CC (MORPHINE MANAGER LICENSING SYRINGE) MG 05/12/2018 05/15/2018 CONTINUOUSEVERY 0 Hour D5 LAC RINGERS 1000CC IV BAG INJ ml 05/12/2018 05/19/2018 CONTINUOUSEVERY 0 Hour ALBUTEROL SVN 2.5MG/3CC LIQ 2.5 MG (PROVENTIL KAY 2.5MG/3CC) MG 05/12/2018 05/22/2018 QID&0600,1100,1600,2100 FENTANYL INJ 100 MCG/2CC VIAL MCG 05/12/2018 05/12/2018 ONCE&1111 PROMETHAZINE VIAL INJ 25 MG/CC (PHENERGAN VIAL) MG 05/12/2018 05/22/2018 PRN QID METOCLOPRAMIDE VIAL INJ 10 MG/2CC (REGLAN 2CC VIAL) MG 05/12/2018 05/22/2018 PRN Q6H ENALAPRIL VIAL INJ 1.25 MG/CC (VASOTEC VIAL) MG 05/12/2018 05/15/2018 PRN Q6H ONDANSETRON VIAL INJ 4 MG/2CC (ZOFRAN 2CC VIAL) MG 05/12/2018 05/19/2018 PRN Q4H Hydromorphone inj 2mg/cc vial (Dilaudid) MG 05/12/2018 05/19/2018 PRN Q4H Heparin, FLUSH IV syringe 500 units UNITS 05/12/2018 05/22/2018 BID&0800,2000 LACTATED RINGERS 1000CC IV BAG INJ ml 05/12/2018 05/19/2018 CONTINUOUSEVERY 0 Hour PANTOPRAZOLE VIAL INJ 40 MG (PROTONIX IV) MG 05/13/2018 05/22/2018 Daily&0900 HYDROCODONE/APAP 7.5/325 ELIX LIQ 15 CC (LORTAB ELIX 7.5/325) ML 05/13/2018 05/23/2018 PRN Q4H Problems Date Dx Coded Attending Type Code Diagnosis Diagnosed By 04/07/2018 Juan Manuel PAYAN MD Ot R00.2 PALPITATIONS 04/07/2018 Juan Manuel PAYAN MD Ot R55 SYNCOPE AND COLLAPSE 04/26/2018 Juan Manuel PAYAN MD, Ot E66.01 MORBID (SEVERE) OBESITY DUE TO EXCESS CA 04/26/2018 Juan Manuel PAYAN MD Ot G47.30 SLEEP APNEA, UNSPECIFIED 04/26/2018 Juan Manuel PAYAN MD Ot I45.10 UNSPECIFIED RIGHT BUNDLE-BRANCH BLOCK 04/26/2018 Juan Manuel PAYAN MD Ot Q21.1 ATRIAL SEPTAL DEFECT 04/26/2018 Juan Manuel PAYAN MD Ot R00.2 PALPITATIONS 04/26/2018 Juan Manuel PAYAN MD Ot R55 SYNCOPE AND COLLAPSE 04/26/2018 Juan Manuel PAYAN MD Ot Z01.810 ENCOUNTER FOR PREPROCEDURAL CARDIOVASCUL 04/26/2018 Juan Manuel PAYAN MD, Ot E66.01 MORBID (SEVERE) OBESITY DUE TO EXCESS CA 04/26/2018 Juan Manuel PAYAN MD Ot G47.30 SLEEP APNEA, UNSPECIFIED 04/26/2018 Juan Manuel PAYNA MD Ot I45.10 UNSPECIFIED RIGHT BUNDLE-BRANCH BLOCK 04/26/2018 Juan Manuel PAYAN MD Ot Q21.1 ATRIAL SEPTAL DEFECT 04/26/2018 Juan Manuel PAYAN MD Ot R00.2 PALPITATIONS 04/26/2018 Juan Manuel PAYAN MD Ot R55 SYNCOPE AND COLLAPSE 04/26/2018 Juan Manuel PAYAN MD Ot Z01.810 ENCOUNTER FOR PREPROCEDURAL CARDIOVASCUL 05/13/2018 Juan Manuel PAYAN MD Ot E66.01 MORBID (SEVERE) OBESITY DUE TO EXCESS CA 05/13/2018 Juan Manuel PAYAN MD Ot G47.30 SLEEP APNEA, UNSPECIFIED 05/13/2018 Juan Manuel PAYAN MD Ot I45.10 UNSPECIFIED RIGHT BUNDLE-BRANCH BLOCK 05/13/2018 Juan Manuel PAYAN MD Ot Q21.1 ATRIAL SEPTAL DEFECT 05/13/2018 Juan Manuel PAYAN MD Ot R00.2 PALPITATIONS 05/13/2018 Juan Manuel PAYAN MD Ot R55 SYNCOPE AND COLLAPSE 05/13/2018 Juan Manuel PAYAN MD Ot Z01.810 ENCOUNTER FOR PREPROCEDURAL CARDIOVASCUL Procedures Code [place] [address] COMPUTER AID DETECTION SCREENING SAVITA PINTO 05/16/2016 G0202 DIGITAL SCREENING MAMMOGRAM SAVITA PINTO 05/16/2016 Results Test Result Range Protime - 03/15/18 13:51 INR 1.1 1.0-4.0 Protime 12.3 Sec 9.9-12.8 EKG - 03/15/18 13:53 EKG Complete Surgical Pathology - 03/19/18 07:50 Surg Path Sent to [facility] Protime - 05/03/18 14:42 INR 1.2 1.0-4.0 Protime 14.0 Sec 9.9-12.8 MRSA Screen - 05/03/18 14:42 FINAL CULTURE RESULTS MRSA Negative Nasal Culture MEDIA PLATED Setup at 14:59 on 05/03/2018 Selenium, Serum or Plasma - 05/03/18 14:42 SELENIUM, SERUM/PLASMA 115 UG/L 91-198 Copper, Serum or plasma - 05/03/18 14:42 COPPER, SERUM 133 UG/DL 72-166 Zinc, Serum or Plasma - 05/03/18 14:42 ZINC, PLASMA OR SERUM 81 UG/DL 56-134 Vitamin B7 (Biotin) - 05/03/18 14:42 VITAMIN B7 0.49 NG/ML 0.05-0.83 Vitamin B3 (Niacin) - 05/03/18 14:42 NICOTINAMIDE 10.0 NG/ML 5.2-72.1 NICOTINIC ACID <5.0 NG/ML 0.0-5.0 Vitamin B1 (Thiamine), Blood - 05/03/18 14:42 VIT. B1, WHOLE BLOOD 143.8 NMOL/L 66.5-200.0 Copper, Serum - 05/03/18 14:42 Copper, Serum 133 ug/dL 72-166 Zinc, Plasma or Serum - 05/03/18 14:42 Zinc, Plasma or Serum 81 ug/dL 56-134 Selenium, Serum/Plasma - 05/03/18 14:42 Selenium, Serum/Plasma 115 ug/L 91-198 Vitamin B3 (Niacin+Metabolite) - 05/03/18 14:42 Nicotinamide 10.0 ng/mL 5.2-72.1 Nicotinic Acid <5.0 ng/mL 0.0-5.0 Vitamin B1 (Thiamine), Blood - 05/03/18 14:42 Vit. B1, Whole Blood 143.8 nmol/L 66.5-200.0 Vitamin B7 - 05/03/18 14:42 Vitamin B7 0.49 ng/mL 0.05-0.83 TYPE/SCREEN - 05/12/18 07:33 ABO/RH O NEGATIVE ANTIBODY SCREEN NEGATIVE Vitamin A, Serum - 05/12/18 07:33 VITAMIN A 29.0 UG/DL 33.1-100.0 Vitamin A, Serum - 05/12/18 07:33 Vitamin A 29.0 ug/dL 33.1-100.0 Urine Culture - 05/12/18 08:10 PRELIM CULTURE RESULTS No Growth 24 hours FINAL CULTURE RESULTS No Growth 48 hours MEDIA PLATED Setup at 09:26 on 05/12/2018 CULTURE SOURCE garcia catheter BMP - 05/12/18 17:56 Anion Gap 13 6-14 BUN 7 mg/dL 5-25 Calcium 8.3 mg/dL 8.3-10.4 Chloride 107 mmol/L 95-114 CO2 22 mEq/L 22-33 Creat 0.75 mg/dL 0.50-1.50 eGFR 84 mL/min/1.73m2 >59 Glucose 169 mg/dL 70-110 Osmo 287 280-295 Potassium 4.3 mmol/L 3.5-5.3 Sodium 138 mmol/L 134-148 BMP - 05/13/18 07:04 Anion Gap 14 6-14 BUN 6 mg/dL 5-25 Calcium 8.3 mg/dL 8.3-10.4 Chloride 109 mmol/L 95-114 CO2 21 mEq/L 22-33 Creat 0.79 mg/dL 0.50-1.50 eGFR 79 mL/min/1.73m2 >59 Glucose 107 mg/dL 70-110 Osmo 287 280-295 Potassium 3.9 mmol/L 3.5-5.3 Sodium 140 mmol/L 134-148 Encounters ACCT No. Visit Date/Time Discharge Status Pt. Type Provider Facility Loc./Unit Complaint [id number] 05/07/2018 16:23:54 05/07/2018 23:59:59 CLS Outpatient Yazmin Wallis [id number] 04/07/2017 16:31:26 04/07/2017 23:59:59 CLS Outpatient Hussain Ledesma [id number] 10/16/2016 17:20:02 10/16/2016 23:59:59 CLS Outpatient Hussain Ledesma [id number] 05/06/2016 16:53:03 05/06/2016 23:59:59 CLS Outpatient Stephany Ng [id number] 06/25/2015 16:23:08 06/25/2015 23:59:59 CLS Outpatient Mita Rios [id number] 06/23/2015 10:07:42 06/23/2015 23:59:59 CLS Outpatient Adolfo Paez [id number] 05/10/2015 18:03:19 05/10/2015 23:59:59 CLS Outpatient Alia Sarabia [id number] 01/15/2015 21:46:35 01/15/2015 23:59:59 CLS Outpatient Mita Rios [id number] 09/21/2014 16:17:54 09/21/2014 23:59:59 CLS Outpatient Mita Rios [id number] 05/12/2018 06:53:00 05/14/2018 10:15:00 DIS Outpatient Elmer Hanson [facility] MED-SURG [id number] 05/03/2018 14:14:00 05/03/2018 23:59:00 DIS Outpatient Elmer Hanson [id number] 03/19/2018 06:41:00 03/19/2018 08:15:00 DIS Outpatient Elmer Hanson [id number] 03/15/2018 13:35:00 03/15/2018 23:59:00 DIS Outpatient Elmer Hanson [id number] 03/01/2018 13:30:00 03/01/2018 23:59:00 DIS Outpatient Elmer Hanson [id number] 03/18/2018 10:47:03 Document Registration [id number] 05/03/2018 14:14:00 Document Registration [id number] 05/16/2018 16:08:00 Document Registration [id number] 05/10/2018 15:20:27 Document Registration [id number] 02/25/2018 10:17:31 Document Registration [id number] 05/07/2018 15:24:00 Document Registration [id number] 09/05/2016 15:43:02 ACT Unknown [id number] 05/26/2016 00:00:00 DIS Document Registration [id number] 05/08/2018 18:08:00 Document Registration [id number] 05/17/2018 11:30:00 05/17/2018 23:59:59 CLS Outpatient Juan Manuel PAYAN MD [facility] CARD PALPITATIONS,NEAR SYNCOPE [id number] 04/22/2018 08:12:00 04/22/2018 23:59:59 CLS Outpatient Juan Manuel PAYAN MD [facility] CARD PALPITATIONS,NEAR SYNCOPE [id number] 04/06/2018 14:17:00 04/06/2018 23:59:59 CLS Outpatient Juan Manuel PAYAN MD [facility] CARD PALPITATIONS,NEAR SYNCOPE [id number] 05/20/2018 11:56:00 ACT Outpatient Juan Manuel PAYAN MD [facility] CATH WIDE COMPLEX TACHYCARDIA [id number] 05/08/2018 18:08:00 Document Registration
--- NOTE | 2018-05-20 13:25 | Implantation of Loop Monitor ---
Implant of Loop Monitior PROCEDURE PHYSICIAN: Keiry Xiong MD IMPLANTATION OF LOOP MONITOR REPORT DATE OF PROCEDURE: 05/20/18 ATTENDING PHYSICIAN: Dr. Tez Xiong. PERFORMING PHYSICIAN: Dr. Tez Xiong. INDICATION: Near-syncope, Wide complex tachycardia. PREOP DIAGNOSIS: Near-syncope, Wide complex tachycardia. POSTOP DIAGNOSIS: Near-syncope, Wide complex tachycardia., s/p implantation of loop recorder. PROCEDURE DETAILS: The patient is a 42 female with history of paroxysmal atrial fibrillation requiring long-term surveillance. Therefore implantable loop recorder was discussed and agreed with the patient. Informed consent was taken. All risks and complications were discussed at length. The patient was draped and prepped in the usual sterile fashion. Local anesthesia was lidocaine, which was given in the substernal area close to the 4th intercostal space. [employer] Loop monitor was implanted according to the protocol. Steri-Strips were placed at the end of the procedure. There were no complications and the patient tolerated the procedure well. ANESTHESIA: Local anesthesia with lidocaine. COMPLICATIONS: None CONTRAST/FLUOROSCOPY: None CONCLUSION: 1. Successful implantation of loop monitor for near syncope, wide complex tachycardia. 2. No complication and the patient tolerated the procedure well. Keiry Xiong MD, [facility], CCDS Cardiac Electrophysiology Juan Manuel XIONG MD May 20, 2018 1:25 pm
== END 2018-05-20 14:00 | disposition home or self-care (01) ==
LOC: CATH 11:56
PROVIDERS: ATTEND Internal Medicine Interventional Cardiology
DX: R00.0 Tachycardia, unspecified (principal); R00.2 Palpitations; I48.0 Paroxysmal atrial fibrillation; I45.10 Unspecified right bundle-branch block; Q21.1 Atrial septal defect; E66.01 Morbid (severe) obesity due to excess calories; Z68.39 Body mass index [BMI] 39.0-39.9, adult; Z79.899 Other long term (current) drug therapy
CPT/HCPCS: 33282

== ENCOUNTER 2018-05-24 09:50 | Outpatient (RCR) | payer BC ==
[~2018-05-24 09:50] MED LIST changes: -CATHETER FLUSH 10 ML SYR IV PRN; +LIDOCAINE 1% INJ 20 ML 20 ML VIAL ONE; -REGADENOSON 0.4 MG/5 ML SYR (LEXISCAN) IV ONE
== END 2018-07-27 | disposition home or self-care (01) ==
LOC: CARD 09:50
PROVIDERS: ATTEND Internal Medicine Interventional Cardiology
DX: Z01.810 Encounter for preprocedural cardiovascular examination (principal); R55 Syncope and collapse; R00.2 Palpitations; I45.10 Unspecified right bundle-branch block; Q21.1 Atrial septal defect; G47.30 Sleep apnea, unspecified; E66.01 Morbid (severe) obesity due to excess calories; Z68.41 Body mass index [BMI] 40.0-44.9, adult
CPT/HCPCS: 93270; 93306